=== PATIENT | male | born 1945 | race Caucasian/White ===

== ENCOUNTER 2016-11-12 23:01 | Emergency (ER) | payer BC, OTHER ==
[2016-11-12 23:20] VITALS: BP 138/89; PULSE 56; TEMP 97.4; BMI 28.2
[2016-11-13] MEDS ORDERED: morphine CARPU-JECT 2 MG/1 ML DISP.SYRIN IVPUSH ONE (00:21)
[2016-11-13] MEDS ORDERED: SODIUM CHLORIDE 0.9% 500 ML INFUS.BAG IV ONE (00:21)
[2016-11-13] MEDS ORDERED: TAMSULOSIN HCL 0.4 MG CAP.ER.24H (FP) PO ONE (00:23)
[2016-11-13 00:27] LABS: URINE APPEARANCE CLEAR; URINE BILIRUBIN NEGATIVE (NEGATIVE); URINE COLOR COLORLESS; URINE GLUCOSE (UA) NEGATIVE (NEGATIVE); URINE KETONE NEGATIVE (NEGATIVE); URINE LEUK ESTERASE NEGATIVE (NEGATIVE); URINE NITRITE NEGATIVE (NEGATIVE); URINE PROTEIN NEGATIVE (NEGATIVE); URINE UROBILINOGEN NEGATIVE E.U./dl (0.2-1.0)
[2016-11-13 00:31] LABS: URINE BLOOD 1+ (NEGATIVE)
[2016-11-13 00:33] LABS: URINE RBC 2 /hpf (0-3); URINE WBC <1 /hpf (3-5)
[2016-11-13] MEDS ORDERED: TAMSULOSIN HCL 0.4 MG CAP.ER.24H (FP) ONE (01:28)
[2016-11-13] MEDS ORDERED: morphine CARPU-JECT 2 MG/1 ML DISP.SYRIN ONE (01:28)
[2016-11-13 01:30] LABS: BASOPHIL 0.3 % (0-2.0); EOSINOPHIL 0.5 % (0-4.5); MCH 32.3 pg (25.7-33.7); MCHC 33.7 g/dl (32.0-35.9); MEAN CELL VOLUME 95.9 fl (80-96); MEAN PLT VOLUME 9.9 fl (7.5-11.1); NEUTROPHILS 78.3 % (42.8-82.8); PLATELET COUNT 105 K/MM3 (134-434); RDW 13.2 % (11.9-15.9); WHITE BLOOD COUNT 10.1 K/mm3 (4.0-10.0)
--- NOTE | 2016-11-13 01:33 | PDOC ---
History of Present Illness - General History Source: Patient Exam Limitations: No Limitations - History of Present Illness Initial Comments: 11/13/16 02:14 The patient is a 71 year old male with a PMHx of HTN, HLD who presents to the ED with right flank pain for 4 days. He states the pain is severe and persistent. Patient states that he is urinating more slowly. He reports a good appetite. The patient denies dysuria and hematuria. The patient denies chest pain, shortness of breath, palpitations, headache and dizziness. The patient denies fever, chills, nausea, vomiting, diarrhea, and constipation. <Hortensia Valencia - Last Filed: 11/13/16 02:13> <Hali Bailey - Last Filed: 11/13/16 06:07> - General Chief Complaint: Nausea/Vomiting Stated Complaint: NAUSEA/VOMITING Time Seen by Provider: 11/12/16 23:58 Past History <Hotrensia Valencia - Last Filed: 11/13/16 02:13> - Past Medical History GI Disorders: Yes (DIVERTICULOSIS, ACID REFLUX) HTN: Yes Hypercholesterolemia: Yes Suicide Attempt (Hx): No - Surgical History Appendectomy: Yes Orthopedic Surgery: Yes (RT ARTHROSCOPY 4WKS AGO) - Psycho/Social/Smoking Cessation Hx Anxiety: No Suicidal Ideation: No Smoking History: Never smoked Have you smoked in the past 12 months: No Number of Cigarettes Smoked Daily: 0 Information on smoking cessation initiated: No 'Breaking Loose' booklet given: 11/14/14 Hx Alcohol Use: No Drug/Substance Use Hx: No Substance Use Type: Alcohol Hx Substance Use Treatment: No <Hali Bailey - Last Filed: 11/13/16 06:07> - Past Medical History Allergies/Adverse Reactions: Allergies Allergy/AdvReac Type Severity Reaction Status Date / Time ciprofloxacin [From Cipro] Allergy Swelling Verified 11/12/16 23:20 tetracycline [Tetracycline] Allergy Rash Verified 11/12/16 23:20 potassium clavulanate AdvReac Verified 11/12/16 23:20 [From Augmentin] MUSSELS AdvReac "VOMITS" Uncoded 11/12/16 23:20 Home Medications: Ambulatory Orders Lisinopril [Zestril] 10 mg PO DAILY 05/08/14 Omeprazole [Prilosec (RX)] 40 mg PO DAILY 05/08/14 Simvastatin [Zocor -] 20 mg PO DAILY 11/13/14 Cetirizine HCl [Zyrtec -] 10 mg PO DAILY 02/21/15 Ciprofloxacin [Cipro (Restricted To Id)] 500 mg PO Q12H 02/21/15 Diphenhydramine HCl [Benadryl Capsules -] 25 mg PO TID #20 capsule 02/21/15 Methylprednisolone [Medrol Dose [place]] 4 mg PO ASDIR #21 tablet 02/21/15 Montelukast Na [Singulair -] 10 mg PO HS 02/21/15 Ibuprofen [Motrin -] 600 mg PO TID #21 tablet 11/13/16 Tamsulosin HCl [Flomax] 0.4 mg PO DAILY #14 capsule 11/13/16 Review of Systems - Review of Systems Able to Perform ROS?: Yes Comments:: 11/13/16 02:14 GENERAL/CONSTITUTIONAL: No fever or chills. No weakness. HEAD, EYES, EARS, NOSE AND THROAT: No change in vision. No ear pain or discharge. No sore throat. CARDIOVASCULAR: No chest pain or shortness of breath. RESPIRATORY: No cough, wheezing, or hemoptysis. GASTROINTESTINAL: No nausea, vomiting, diarrhea or constipation. GENITOURINARY: + Right flank pain, slow urination. No dysuria, frequency. MUSCULOSKELETAL: No joint or muscle swelling or pain. No neck or back pain. SKIN: No rash NEUROLOGIC: No headache, vertigo, loss of consciousness, or change in strength/ sensation. ENDOCRINE: No increased thirst. No abnormal weight change. HEMATOLOGIC/LYMPHATIC: No anemia, easy bleeding, or history of blood clots. ALLERGIC/IMMUNOLOGIC: No hives or skin allergy. <Hortensia Valencia - Last Filed: 11/13/16 02:13> *Physical Exam - Vital Signs Last Vital Signs Temp Pulse Resp BP Pulse Ox 97.4 F L 56 L 19 138/89 99 11/12/16 23:17 11/12/16 23:17 11/12/16 23:17 11/12/16 23:17 11/12/16 23:17 - Physical Exam Comments: 11/13/16 02:14 GENERAL: Awake, alert, and fully oriented, in no acute distress, afebrile. HEAD: No signs of trauma EYES: PERRLA, EOMI, sclera anicteric, conjunctiva clear ENT: Auricles normal inspection, hearing grossly normal, nares patent, oropharynx clear without exudates. Moist mucosa NECK: Normal ROM, supple, no lymphadenopathy, JVD, or masses LUNGS: Minimal crackles bilaterally in lower lung avendano. HEART: Regular rate and rhythm, normal S1 and S2, no murmurs, rubs or gallops ABDOMEN: Flank tenderness with percussion. No rebound, no guarding. Side tenderness with percussion. No RLQ tenderness, no LLQ tenderness. Soft, normoactive bowel sounds. No masses EXTREMITIES: Normal range of motion, no edema. No clubbing or cyanosis. No cords, erythema, or tenderness NEUROLOGICAL: Cranial nerves II through XII grossly intact. Normal speech, normal gait SKIN: Warm, Dry, normal turgor, no rashes or lesions noted. <Hortensia Valencia - Last Filed: 11/13/16 02:13> - Vital Signs Last Vital Signs Temp Pulse Resp BP Pulse Ox 97.4 F L 56 L 19 138/89 99 11/12/16 23:17 11/12/16 23:17 11/12/16 23:17 11/12/16 23:17 11/12/16 23:17 <Hali Bailey - Last Filed: 11/13/16 06:07> ED Treatment Course - LABORATORY CBC & Chemistry Diagram: 11/13/16 01:10 11/13/16 01:10 - ADDITIONAL ORDERS Additional order review: Laboratory Results 11/13/16 00:16 Urine Color Colorless Urine Appearance Clear Urine pH 8.0 D Ur Specific [place] 1.010 Urine Protein Negative Urine Glucose (UA) Negative Urine Ketones Negative Urine Blood 1+ H Urine Nitrite Negative Urine Bilirubin Negative Urine Urobilinogen Negative Ur Leukocyte Esterase Negative Urine RBC 2 Urine WBC <1 11/13/16 01:10 RBC 4.54 MCV 95.9 MCHC 33.7 RDW 13.2 MPV 9.9 Neutrophils % 78.3 D Lymphocytes % 13.1 D Monocytes % 7.8 Eosinophils % 0.5 Basophils % 0.3 - Medications Given in the ED: ED Medications Discontinued Medications Generic Name Dose Route Start Last Admin Trade Name Freq PRN Reason Stop Dose Admin Morphine Sulfate 2 mg 11/13/16 00:21 11/13/16 01:33 Morphine Injection - IVPUSH 11/13/16 00:22 2 mg ONCE ONE Administration Sodium Chloride 1,000 ml 11/13/16 00:21 11/13/16 01:33 Normal Saline - IV 11/13/16 00:22 1,000 ml ONCE ONE Administration Tamsulosin HCl 0.4 mg 11/13/16 00:23 11/13/16 01:34 Flomax - PO 11/13/16 00:24 0.4 mg ONCE ONE Administration <Hortensia Valencia - Last Filed: 11/13/16 02:13> - LABORATORY CBC & Chemistry Diagram: 11/13/16 01:10 11/13/16 01:10 - ADDITIONAL ORDERS Additional order review: Laboratory Results 11/13/16 00:16 Urine Color Colorless Urine Appearance Clear Urine pH 8.0 D Ur Specific [place] 1.010 Urine Protein Negative Urine Glucose (UA) Negative Urine Ketones Negative Urine Blood 1+ H Urine Nitrite Negative Urine Bilirubin Negative Urine Urobilinogen Negative Ur Leukocyte Esterase Negative Urine RBC 2 Urine WBC <1 11/13/16 01:10 RBC 4.54 MCV 95.9 MCHC 33.7 RDW 13.2 MPV 9.9 Neutrophils % 78.3 D Lymphocytes % 13.1 D Monocytes % 7.8 Eosinophils % 0.5 Basophils % 0.3 - RADIOLOGY Radiology Studies Ordered: Category Date Time Status SPIRAL- RENAL-STONE CT [CT] Stat CT Scan 11/13/16 00:23 Ordered <Hali Bailey - Last Filed: 11/13/16 06:07> Medical Decision Making - Medical Decision Making 11/13/16 05:55 Patient Name: Luis Fernando Heath THIS IS A PRELIMINARY REPORT FROM [facility] EXAM: CT abdomen without contrast and CT pelvis without contrast IMAGES: [id number] EXAM DATE AND TIME: 2016-11-13 04:27:54.0 REASON FOR EXAM: 71-year-old male evaluated for right kidney ureteral stone. COMPARISON: None. FINDINGS: Basilar atelectasis or scarring. Lack of intravenous contrast limits this exam. Mild cardiomegaly with calcified aortic valve calcified coronary arteriosclerosis noted. Noncontrast evaluation liver gallbladder pancreas spleen and adrenal glands appear unremarkable. Benign-appearing renal cortical cysts. Right perinephric fat stranding may be due to pyelonephritis or hydronephrosis. Moderate right hydronephrosis and hydroureter. No stones in the right ureter. Moderate arteriosclerosis of the aorta. Infrarenal 3.2 x 2.9 cm abdominal aortic aneurysm. Severe arteriosclerotic narrowing of the pelvic vasculature most likely associated with lower extremity claudication pain. Lack of oral contrast limits exam. Noncontrast evaluation of the stomach and small bowel appear unremarkable. Appendix is not identified. Constipation with diverticulosis without diverticulitis. No free air free fluid or abscess. Bladder and prostate appear unremarkable. Mild to moderate degenerative disc disease. IMPRESSION Right perinephric fat stranding may be due to pyelonephritis or hydronephrosis with moderate right hydronephrosis and hydroureter and no stones in the right ureter. Benign-appearing renal cortical cysts. Mild cardiomegaly with a calcified aortic valve and calcified coronary arteriosclerosis noted. Moderate arteriosclerosis of the aorta with an infrarenal abdominal aortic aneurysm and severe arteriosclerotic narrowing of the pelvic vasculature most likely associated with lower extremity claudication pain. Constipation with diverticulosis without diverticulitis. THIS DOCUMENT HAS BEEN ELECTRONICALLY SIGNED <Hali Bailey - Last Filed: 11/13/16 06:07> *DC/Admit/Observation/Transfer - Attestations Scribe Attestion: 11/13/16 02:14 Documentation prepared by Hortensia Valencia, acting as medical affairs specialist for Hali Bailey MD. <Hortensia Valencia - Last Filed: 11/13/16 02:13> <Hali Bailey - Last Filed: 11/13/16 06:07> Diagnosis at time of Disposition: Renal colic, Hematuria - Discharge Dispostion Disposition: HOME Condition at time of disposition: Improved - Referrals Referrals: Jignesh Lee MD [Primary Care Provider] - Belkis Lee MD [Staff Physician] - - Patient Instructions Printed Discharge Instructions: Kidney Stones -- Adult, Abdominal Aortic Aneurysm Repair
[2016-11-13 02:11] LABS: ALBUMIN 3.8 g/dl (3.4-5.0); ALK PHOS 80 U/L (45-117); ANION GAP 9 (8-16); BILIRUBIN,TOTAL 0.3 mg/dL (0.2-1.0); CALCIUM 8.7 mg/dL (8.5-10.1); CO2 29 mmol/L (21-32); GLUCOSE,RANDOM 106 mg/dL (74-106); SGOT/AST 46 U/L (15-37); SGPT/ALT 89 U/L (12-78)
[2016-11-13] MEDS ORDERED: KETOROLAC TROMETHAMINE 30 MG/1 ML VIAL IVPUSH ONE (02:26)
[2016-11-13] MEDS ORDERED: KETOROLAC TROMETHAMINE 30 MG/1 ML VIAL ONE (02:27)
== END 2016-11-13 06:31 | disposition home or self-care (01) ==
LOC: SUPCPDRO 23:01 → JER 23:01
PROC: 3E033NZ Introduction of Analgesics, Hypnotics, Sedatives into Peripheral Vein, Percutaneous Approach (ICD-10-PCS; principal; 2016-11-12)
PROC: 3E033NZ Introduction of Analgesics, Hypnotics, Sedatives into Peripheral Vein, Percutaneous Approach (ICD-10-PCS; 2016-11-12)
DX: N23 Unspecified renal colic (principal); R31.9 Hematuria, unspecified; I71.4 Abdominal aortic aneurysm, without rupture
CPT/HCPCS: 36415; 74176; 80053; 81003; 81015; 85025; 87086; 96374; 96375; 99282-25

== ENCOUNTER 2017-10-02 10:47 | Emergency (ER) | payer OTHER ==
[2017-10-02 11:02] VITALS: BP 126/52; PULSE 60; TEMP 97.7; BMI 28.4
[2017-10-02] MEDS ORDERED: IBUPROFEN 400 MG TABLET (FP) PO ONE (12:22)
--- NOTE | 2017-10-02 12:22 | PDOC ---
History of Present Illness - General Chief Complaint: Toothache Stated Complaint: INFECTION,SWELLING Time Seen by Provider: 10/02/17 11:58 History Source: Patient Exam Limitations: No Limitations - History of Present Illness Initial Comments: 10/02/17 12:27 Patient is a 72-year-old male with past medical history of hypertension, HLD who presents to the emergency department today complaining of tooth pain and cheek swelling. Patient states symptoms began approximately 2 days ago. He states that his upper left gums hurt. He also has left cheek swelling. Denies fevers, difficulty swallowing. He states that he has an appointment to see his dentist later this week however the pain made him want to be evaluated sooner. Past History - Travel Traveled outside of the country in the last 30 days: No Close contact w/someone who was outside of country & ill: No - Past Medical History Allergies/Adverse Reactions: Allergies Allergy/AdvReac Type Severity Reaction Status Date / Time ciprofloxacin [From Cipro] Allergy Swelling Verified 10/02/17 11:02 tetracycline [Tetracycline] Allergy Rash Verified 10/02/17 11:02 potassium clavulanate AdvReac Verified 10/02/17 11:02 [From Augmentin] Home Medications: Ambulatory Orders Lisinopril [Zestril] 40 mg PO DAILY 05/08/14 Omeprazole [Prilosec (RX)] 40 mg PO DAILY 05/08/14 Simvastatin [Zocor -] 20 mg PO DAILY 11/13/14 Nitrofurantoin Macrocrystal [Nitrofurantoin] 100 mg PO BID 11/23/16 Clindamycin [Cleocin -] 300 mg PO TID #21 capsule 10/02/17 Ibuprofen 800 mg PO TID #30 tablet 10/02/17 Anemia: No Asthma: No Cancer: No Cardiac Disorders: No CVA: No COPD: No CHF: No Dementia: No Diabetes: No GI Disorders: Yes (DIVERTICULOSIS, ACID REFLUX) Disorders: No HTN: Yes Hypercholesterolemia: Yes Kidney Stones: Yes Liver Disease: No Seizures: No Thyroid Disease: No - Surgical History Appendectomy: Yes Orthopedic Surgery: Yes (RT ARTHROSCOPY 4WKS AGO) - Suicide/Smoking/Psychosocial Hx Smoking History: Current every day smoker Have you smoked in the past 12 months: No Number of Cigarettes Smoked Daily: 0 If you are a former smoker, when did you quit?: 1 year ago Cigars Per Day: 2 Information on smoking cessation initiated: No 'Breaking Loose' booklet given: 11/14/14 Hx Alcohol Use: Yes (SOCIAL) Drug/Substance Use Hx: No Substance Use Type: None Hx Substance Use Treatment: No Review of Systems - Review of Systems Able to Perform ROS?: Yes Is the patient limited Indonesian proficient: No Constitutional: No: Chills, Fever, Weakness HEENTM: Yes: Mouth Pain, Dental Problems, Mouth Swelling. No: Nose Congestion, Throat Pain, Throat Swelling, Difficulty Swallowing Integumentary: Yes: Other (swelling L cheek). No: Bruising, Erythema, Rash Neurological: No: Headache, Numbness, Paresthesia, Tingling, Weakness All Other Systems: Reviewed and Negative *Physical Exam - Vital Signs Last Vital Signs Temp Pulse Resp BP Pulse Ox 97.7 F 60 20 126/52 97 10/02/17 10:58 10/02/17 10:58 10/02/17 10:58 10/02/17 10:58 10/02/17 10:58 - Physical Exam Comments: 10/02/17 16:00 GENERAL: The patient is awake, alert, and fully oriented, in no acute distress. HEAD: Normal with no signs of trauma. MOUTH: Dental decay of the L upper canine. No obvious abscess or area of fluctance. EYES: Pupils equal, round and reactive to light, extraocular movements intact, sclera anicteric, conjunctiva clear. EXTREMITIES: Normal range of motion, no edema. NEUROLOGICAL: Normal speech, normal gait. No numbness, sensory deficit to face b /l, Motor strength intact b/l. PSYCH: Normal mood, normal affect. SKIN: Warm, Dry, normal turgor, no rashes or lesions noted. Medical Decision Making - Medical Decision Making 10/02/17 12:32 Patient presents with 2 days of dental pain. There is obvious dental decay of the left upper canine. No obvious fluctuance or abscess. We will treat with antibiotics (clindamycin) prophylactically at this time. Pt. allergic to augmenting and cipro. Patient also prescribed ibuprofen for pain. He was instructed to keep his appointment with his dentist. We'll discharge home at this time. All questions were answered. *DC/Admit/Observation/Transfer Diagnosis at time of Disposition: Tooth infection - Discharge Dispostion Disposition: HOME Condition at time of disposition: Good Admit: No - Prescriptions Prescriptions: Clindamycin [Cleocin -] 300 mg PO TID #21 capsule Ibuprofen 800 mg PO TID #30 tablet - Referrals Referrals: Jignesh Lee MD [Primary Care Provider] - - Patient Instructions Printed Discharge Instructions: DI for Tooth Decay Additional Instructions: You have infected tooth. Please take the antibiotics as prescribed. Please finish the entire dose even if you feel better. Please take this medication with food. You may take ibuprofen 800 mg 3 times a day as needed for pain. You may use warm compresses to the cheek to help with swelling. Please follow up with her dentist tomorrow. Return to the emergency department if you have worsening pain, difficulty swallowing, shortness of breath, any signs of allergic reaction to the antibiotic, or any new or worsening symptoms. - Post Discharge Activity
== END 2017-10-02 12:27 | disposition home or self-care (01) ==
LOC: JERFT 10:47
DX: K02.9 Dental caries, unspecified (principal); I10 Essential (primary) hypertension; E78.00 Pure hypercholesterolemia, unspecified; Z87.442 Personal history of urinary calculi
CPT/HCPCS: 99281-25

== ENCOUNTER 2019-07-13 07:48 | Day surgery (SDC) | payer OTHER ==
[2019-07-12 14:14] VITALS: BMI 29.3
[2019-07-13] MEDS ORDERED: ACETAMINOPHEN 325 MG TABLET (FP) PO PRN ×2 (09:54→11:36)
--- NOTE | 2019-07-13 09:58 | OP ---
Operative Note - Note: Operative Date: 07/13/19 Pre-Operative Diagnosis: rt. upj-obstruction with hydronephrosis Operation: cysto, upj dilation and jj stent placement Post-Operative Diagnosis: Same as Pre-op Surgeon: Belkis Lee Anesthesia: General Specimens Removed: urine Estimated Blood Loss (mls): 0 Drains & Tubes with Location: 24cm rt. jj stent Drains, Volume Out (mls): 0 Blood Volume Replaced (mls): 0 Fluid Volume Replaced (mls): 0 Operative Report Dictated: Yes
[2019-07-13] MEDS ORDERED: MIDAZOLAM HCL 2 MG/2 ML SINGLE DOSE VIAL ONE (10:43)
[2019-07-13] MEDS ORDERED: ceFAZolin SODIUM 1 GM VIAL IVPB ONE (10:53)
[2019-07-13] MEDS ORDERED: IOHEXOL 300 MG/ML INFUS..BTL IV ONE (11:03)
[2019-07-13] MEDS ORDERED: oxyCODONE HCL 5 MG TABLET PO PRN (11:52)
[2019-07-13] MEDS ORDERED: PROMETHAZINE HCL 25 MG/1 ML VIAL IVPUSH PRN (11:52)
[2019-07-13] MEDS ORDERED: ONDANSETRON 4 MG/2 ML VIAL IVPUSH PRN (11:52)
[2019-07-13] MEDS ORDERED: LACTATED RINGERS SOLUTION 1,000 ML IV SCH (12:00)
[2019-07-13] MEDS ORDERED: ONDANSETRON 4 MG/2 ML VIAL ONE (13:49)
[2019-07-13] MEDS ORDERED: ACETAMINOPHEN INJECTION 100 ML IVPB ONE (14:03)
[2019-07-13] MEDS ORDERED: ACETAMINOPHEN 1000 MG/100 ML VIAL (NON FORMULARY) IVPB ONE ×2 (14:05→14:10)
[2019-07-13 15:45] VITALS: BP 117/77; PULSE 61; TEMP 97.8
--- NOTE | 2019-07-13 16:31 | CONS ---
DATE OF CONSULTATION: DATE OF DICTATION: 07/13/2019 HISTORY OF PRESENT ILLNESS: The patient is a 73-year-old male with a history of prostatism. He does wake up once to twice at night, has urinary frequency and hesitancy. Denies dysuria or hematuria. He was found to have a right hydronephrosis on a CT scan. The bladder was also thick. The patient has had a liver biopsy last week for elevated liver enzymes. He does have history of dyslipidemia. He is allergic to AUGMENTIN, TETRACYCLINE, and CIPRO. He presently is on lisinopril, a PPI, and . PHYSICAL EXAMINATION: Abdomen: His abdomen is soft. There is some right CVA tenderness. Genitourinary: Genitalia are atraumatic. Prostate is 2+, smooth, not tender. IMPRESSION: At present is severe right sided hydronephrosis with marked cortical atrophy that has worsened since December 22, 2016. The right ureter is not visualized, suggesting a high grade ureteropelvic junction obstruction. There were also multiple left renal cysts. There are thickened gastric folds. There is also a 3.1-cm abdominal aortic aneurysm. Also seen was a thickened urinary bladder. Cystitis cannot be excluded. The patient will go for cystoscopy, right retrograde pyelogram and stent placement. Procedure was explained to patient, and he agrees. MADELINE PEMBERTON M.D. [id number]
--- NOTE | 2019-07-13 17:09 | OP ---
DATE OF OPERATION: 07/13/2019 PREOPERATIVE DIAGNOSIS: Right ureteropelvic junction obstruction, right cortical thinning. POSTOPERATIVE DIAGNOSIS: Right ureteropelvic junction obstruction, right cortical thinning. OPERATIVE PROCEDURE: Cystourethroscopy, right retrograde pyelogram, right ureteropelvic junction dilation and placement of a right JJ stent. ANESTHESIA: General. DESCRIPTION OF PROCEDURE: Under above stated anesthesia, patient is prepped and draped in the usual sterile manner. Cystoscopy revealed trilobar hypertrophy of the prostate. Urine was collected for culture. Inspection of the bladder revealed a grade 2 trabeculation; ureteral orifices were within normal limits. Efflux of clear urine was noted from the left, none was seen from the right. A Flexi-Tip catheter was placed in the right ureteral orifice, and 10 mL of contrast was injected. This revealed a severe extrarenal pelvis with a stricture at the ureteropelvic junction. Delayed films revealed no drainage from the renal pelvis. Therefore a glidewire was passed up the right renal unit. A ureteral dilation balloon was then placed over the wire and into the renal pelvis. The balloon bypassed the stricture in the midline. The balloon was then dilated to 14 [place] and left open for 10 minutes. Afterwards, the balloon dilator was deflated and removed. A 24 [place] JJ stent was left in place. X-rays confirmed good position of the stent. The bladder was emptied. The scope was removed. The patient tolerated the procedure well. He returned to the recovery room in good condition. Mitali [id number]
--- NOTE | 2019-07-17 16:36 | PATH ---
Cytology Non-Gynecological Report Patient Name: TORI LEUNG Med. Rec. #: [id number] /Age/Gender: 1945 (Age: 73) / M Account: [id number] Location: [facility] Taken: 07/13/2019 Received: 07/13/2019 Reported: 07/17/2019 Physicians: Belkis Lee M.D. Specimen(s) Received BLADDER URINE Clinical History Bladder urine for cytology Final Diagnosis BLADDER URINE FOR CYTOLOGY: SATISFACTORY FOR EVALUATION. NEGATIVE FOR HIGH GRADE UROTHELIAL CARCINOMA. MANY UROTHELIAL FRAGMENTS PRESENT. SCATTERED UROTHELIAL CELLS AND SQUAMOUS EPITHELIAL CELLS PRESENT. Comment: Urothelial fragments are suggestive of prior instrumentation. However, differential diagnoses include lithiasis, or a low grade papillary neoplasm. Suggest clinical/radiologic correlation. Electronically Signed Margaux Gallagher M.D. Gross Description Approximately 60 cc of yellow fluid received fresh. One cytofunnel prepared and Pap stained.
== END 2019-07-13 15:00 | disposition home or self-care (01) ==
LOC: JASU-SURG 07:48
PROVIDERS: ATTEND Urology
PROC: 0T768DZ Dilation of Right Ureter with Intraluminal Device, Via Natural or Artificial Opening Endoscopic (ICD-10-PCS; principal; 2019-07-13 10:00)
PROC: 0T778DZ Dilation of Left Ureter with Intraluminal Device, Via Natural or Artificial Opening Endoscopic (ICD-10-PCS; 2019-07-13 10:00)
DX: N13.5 Crossing vessel and stricture of ureter without hydronephrosis (principal); N40.0 Benign prostatic hyperplasia without lower urinary tract symptoms; I10 Essential (primary) hypertension; J44.9 Chronic obstructive pulmonary disease, unspecified
CPT/HCPCS: 76000-TC-FY; 87086; 88108; 94760; J0131

== ENCOUNTER 2019-07-20 12:24 | Inpatient (IN) | payer OTHER ==
--- NOTE | 2019-07-20 13:21 | PDOC ---
Attending Attestation - Resident Resident Name: Rosa Madrigal - ED Attending Attestation I have performed the following: I have examined & evaluated the patient, The case was reviewed & discussed with the resident, I agree w/resident's findings & plan, Exceptions are as noted - HPI HPI: 07/20/19 13:21 74y M hx of hx of htn, hl, kidney stones sp recnet stent, recent liver bx at [facility] presents for evaluation of sob and lighthededness. Pt had gone to dr Lee for an outpatient fu and was sent to the ED as he was feeling sob. pt states he felt fine yesterday, but woke up not feeling well, fatigued, nonproductive cough and feeling some sob/michael. Pt denies any cp, n/v, headachem neck pain, abd pain, dysuria, diarrhea. Physical exam GENERAL: The patient is awake, alert, and fully oriented, Nontoxic - in no acute distress. HEAD: Normocephalic, atraumatic. EYES: extraocular movements intact, sclera anicteric, conjunctiva clear. ENT: Normal voice, Moist mucous membranes. NECK: Normal range of motion, supple LUNGS: R basilar rales, HEART: Rtchycardic wo murmer ABDOMEN: Soft, nontender, No guarding, no rebound. No CVA tenderness EXTREMITIES: Normal range of motion, no edema. NEUROLOGICAL: No facial assymetry, Normal speech, movin gall 4 ext spotnaouesly and symmetrically PSYCH: Normal mood, normal affect. SKIN: hot to touch, Dry, normal turgor, ddx - suspect pna - will obtain labs work, cxr, ua sepsis orderset obtained - Physicial Exam PE: 07/22/19 08:20 see above - Medical Decision Making 07/20/19 16:20 pts labs reviewed noted for leukocytosis UA relatively clean cxr noted for RLL pna - will treat for CAP (no prior hospitalizition) will start abx will admit for furhter managment for pna Heart Score/ECG Review - ECG Impressions Comment:: 07/20/19 13:31 Twelve-lead EKG was performed and reviewed by me. There is normal sinus rhythm with a rate of 111 The axis is normal. The intervals are normal. There is normal R wave progression There are no ST or T wave abnormalities. Impression: Sinus tachycardia
--- NOTE | 2019-07-20 13:41 | PDOC ---
History of Present Illness - General Chief Complaint: SIRS, Suspected/Possible Stated Complaint: DIZZY/WEAK Time Seen by Provider: 07/20/19 13:12 - History of Present Illness Initial Comments: 07/20/19 14:08 74 y/o M hx of HTN, HLD, GERD, BPH and recent stent placement for obstruction and hydronephrosis, presents to the ER with 3 days of right flank pain. He had a stent placed last Tuesday by Dr. Brian Barba and was placed on antibiotics. the pain is 6/10 right sided flank pain. it does not radiate to his groin or abdomen. Denies taking any pain medications at this time. He endorses burning with urination and dry cough. He denies any sputum on coughing, hematuria, nausea, vomiting, diarrhea, bloody stool, chest pain. Past History - Past Medical History Allergies/Adverse Reactions: Allergies Allergy/AdvReac Type Severity Reaction Status Date / Time ciprofloxacin [From Cipro] Allergy Swelling Verified 07/20/19 12:28 tetracycline [Tetracycline] Allergy Rash Verified 07/20/19 12:28 potassium clavulanate AdvReac Verified 07/20/19 12:28 [From Augmentin] Home Medications: Ambulatory Orders Lisinopril [Zestril] 40 mg PO DAILY 05/08/14 Omeprazole [Prilosec (RX)] 40 mg PO DAILY 05/08/14 Aspirin [ASA -] 1 tab PO DAILY 07/09/19 Tamsulosin HCl [Flomax -] 1 cap PO DAILY 07/09/19 Fenofibrate 160 mg PO DAILY 07/20/19 Nitrofurantoin Monohyd/M-Cryst [Macrobid -] 100 mg PO BID 07/20/19 Oxycodone HCl/Acetaminophen [Percocet 5-325 mg Tablet] 1 tab PO Q6H PRN Anemia: No Asthma: No Cancer: No Cardiac Disorders: No CVA: No COPD: No CHF: No Dementia: No Diabetes: No GI Disorders: Yes (DIVERTICULOSIS, ACID REFLUX) Disorders: Yes (kidney stones) HTN: Yes Hypercholesterolemia: Yes Kidney Stones: Yes Liver Disease: No Seizures: No Thyroid Disease: No - Surgical History Appendectomy: Yes Orthopedic Surgery: Yes (B/L KNEES SX) - Psycho Social/Smoking Cessation Hx Smoking History: Unknown if ever smoked Have you smoked in the past 12 months: No Number of Cigarettes Smoked Daily: 0 If you are a former smoker, when did you quit?: 1 year ago Cigars Per Day: 5 'Breaking Loose' booklet given: 11/14/14 Hx Alcohol Use: Yes (SOCIAL-STOPPED 5 WEEKS AGO) Drug/Substance Use Hx: No Substance Use Type: None Hx Substance Use Treatment: No Review of Systems - Review of Systems Constitutional: Yes: Chills, Fever HEENTM: No: Eye Pain, Blurred Vision Respiratory: Yes: Cough. No: Shortness of Breath Cardiac (ROS): Yes: Lightheadedness. No: Chest Pain ABD/GI: No: Constipated, Diarrhea, Nausea : Yes: Burning, Flank Pain. No: Hematuria Musculoskeletal: Yes: Back Pain. No: Neck Pain Integumentary: No: Bruising, Change in Color Neurological: No: Headache, Numbness Hematologic/Lymphatic: No: Anemia, Blood Clots *Physical Exam - Vital Signs Last Vital Signs Temp Pulse Resp BP Pulse Ox 99.6 F 116 H 24 H 118/53 L 98 07/20/19 12:30 07/20/19 12:30 07/20/19 12:30 07/20/19 12:30 07/20/19 12:30 - Physical Exam Comments: 07/20/19 14:07 PE: GENERAL: Awake, alert, and fully oriented, uncomfortable. HEAD: No signs of trauma, normocephalic, atraumatic EYES: PERRLA, EOMI, sclera anicteric, conjunctiva clear ENT: Auricles normal inspection, hearing grossly normal, nares patent, oropharynx clear without exudates. Moist mucosa NECK: Normal ROM, supple, no lymphadenopathy, JVD, or masses LUNGS: No distress, speaks full sentences, crackles in right lung base. HEART: Regular rate and rhythm, normal S1 and S2, no murmurs, rubs or gallops, peripheral pulses normal and equal bilaterally. ABDOMEN: Soft, nontender, normoactive bowel sounds. No guarding, no rebound. No masses EXTREMITIES : Normal inspection, Normal range of motion, no edema. No clubbing or cyanosis NEUROLOGICAL: Cranial nerves II through XII grossly intact. Normal speech, normal gait, no focal sensorimotor deficits SKIN: very warm to touch, Dry, normal turgor, no rashes or lesions noted ED Treatment Course - LABORATORY CBC & Chemistry Diagram: 07/20/19 14:30 07/20/19 14:30 Medical Decision Making - Medical Decision Making 07/20/19 14:01 74 y/o M hx of HTN, HLD, GERD, BPH and recent stent placement for obstruction and hydronephrosis, pt's rectal temperature 102.5F sepsis workup initiated. Meds: toradol 30mg IV for pain and fever. 07/20/19 14:14 07/20/19 15:07 EKG: sinus tachycardia, possible left atrial enlargement borderline EKG 07/20/19 16:32 elevated lactic acid 3.6 white count 22.[address] anny barba for admission. will admit to [facility] microblog has been sent. and additional 1L NS ordered. Discharge - Follow up/Referral Referrals: Jignesh Barba MD [Primary Care Provider] - - Patient Discharge Instructions - Post Discharge Activity
[2019-07-20] MEDS ORDERED: KETOROLAC TROMETHAMINE 30 MG/1 ML VIAL IVPUSH ONE (14:02)
[2019-07-20] MEDS ORDERED: SODIUM CHLORIDE 0.9% 500 ML INFUS.BAG IV ONE ×2 (14:06→16:19)
[2019-07-20 14:59] LABS: VENOUS PH 7.39 (7.31-7.41); VENOUS PO2 < 49 mmHg (28-48)
[2019-07-20 15:01] LABS: VENOUS PC02 43.3 mmHg (38-52)
[2019-07-20] MEDS ORDERED: AZITHROMYCIN IVPB 500 MG in DEXTROSE 5%-WATER - 250 ML IVPB ONE (15:04)
[2019-07-20] MEDS ORDERED: CEFTRIAXONE 1,000 MG in DEXTROSE 5%-WATER - 50 ML IVPB ONE (15:04)
[2019-07-20 15:08] LABS: BASO % 0.4 % (0-2.0); EOS % 0.3 % (0-4.5); HEMATOCRIT 44.7 % (35.4-49); HEMOGLOBIN 15.2 GM/dL (11.7-16.9); LYMPH % 1.2 % (8-40); MCH 33.3 pg (25.7-33.7); MCHC 34.1 g/dl (32.0-35.9); MEAN CELL VOLUME 97.7 fl (80-96); MEAN PLT VOLUME 9.5 fl (7.5-11.1); MONO % 4.5 % (3.8-10.2); NEUT % 93.6 % (42.8-82.8); PLATELET COUNT 109 K/MM3 (134-434); RBC 4.57 M/mm3 (4.00-5.60); RDW 13.2 % (11.9-15.9); WHITE BLOOD COUNT 22.8 K/mm3 (4.0-10.0)
[2019-07-20 15:13] LABS: EPI CELLS 3.8 /HPF (0-5/HPF); HYALINE CASTS 6 /lpf (0-8); PH,URINE 5.5 (5.0-8.0); URINE APPEARANCE CLEAR; URINE BACTERIA 2.2 /hpf (NEGATIVE); URINE BILIRUBIN NEGATIVE (NEGATIVE); URINE COLOR DK YELLOW; URINE GLUCOSE (UA) NEGATIVE (NEGATIVE); URINE KETONE TRACE (NEGATIVE); URINE LEUK ESTERASE 2+ (NEGATIVE); URINE NITRITE NEGATIVE (NEGATIVE); URINE PROTEIN 2+ (NEGATIVE); URINE RBC 26 /hpf (0-4); URINE UROBILINOGEN 0.2 mg/dL (0.2-1.0); URINE WBC 21 /hpf (0-5)
[2019-07-20] MEDS ORDERED: AZITHROMYCIN IVPB 500 MG/250 ML BAG IVPB ONE (15:16)
[2019-07-20] MEDS ORDERED: CEFTRIAXONE 1 GM/50 ML BAG ONE (15:16)
[2019-07-20] MEDS ORDERED: KETOROLAC TROMETHAMINE 30 MG/1 ML VIAL ONE (15:16)
[2019-07-20 15:44] LABS: ANISOCYTOSIS 0; MACROCYTOSIS 0; PLATELET ESTIMATE DECREASED
[2019-07-20 15:49] LABS: ALBUMIN 3.6 g/dl (3.4-5.0); BILIRUBIN,TOTAL 0.8 mg/dL (0.2-1); BLOOD UREA NITROGEN 21.3 mg/dL (7-18); CALCIUM 9.1 mg/dL (8.5-10.1); CREATININE 1.5 mg/dL (0.55-1.3); POTASSIUM 4.5 mmol/L (3.5-5.1); TOT PROT 7.2 g/dl (6.4-8.2)
[2019-07-20] MEDS ORDERED: SODIUM CHLORIDE 1,000 ML IV STA ×2 (16:47→21:45)
[2019-07-20] MEDS ORDERED: ACETAMINOPHEN 1000 MG/100 ML VIAL (NON FORMULARY) IVPB PRN (17:02)
--- NOTE | 2019-07-20 17:08 | HP ---
<Ricky Roth - Last Filed: 07/20/19 22:51> CHIEF COMPLAINT: Flank pain/ SOB PCP: Dr. Jignesh Lee (away this weekend) HISTORY OF PRESENT ILLNESS: 74yo M with h/o HTN, HLD, ureter obstruction s/p cystoscopy stenting (07/13) who presents today with complaints of flank pain and some shortness of breath. Pt reports he had a cystoscopy on 07/13/19 without any complication with Dr. Chelsea Lee. Pt was given Macrobid 100mg BID PO to take as prophylaxis and was compliant throughout the weekend. Pt this morning upon waking felt short of breath and had lateral abdominal pain rated 5-6/10. Pt sought help at the ER once he realized his symptoms were prolonged throughout the day. Normally, pt has no trouble with breathing and can ambulate/perform ADLs without shortness of breath. Pt currently states his SOB is improved since coming into the ER. Pt does endorse a nonproductive cough. In addition he has dysuria without any notable blood, darkening of urine. He denies any fever/chills/rigors, blurry vision, headaches, lightheadedness, dizziness, chest pain, palpitations, diarrhea/constipation, sick contacts. In ED pt was hydrated, continued on IV antibiotics and had imaging which revealed multifocal pneumonia PAST MEDICAL HISTORY: HTN, HLD, hydronephrosis 2/2 to ureter obstruction s/p stenting PAST SURGICAL HISTORY: Cystoscopy with UJ stent (07/13/19) Social History: Smoking: Cigars; daily Alcohol: None Drugs: None Family: noncontributory Allergies ciprofloxacin [From Cipro] Allergy (Verified 07/20/19 12:28) Swelling tetracycline [Tetracycline] Allergy (Verified 07/20/19 12:28) Rash potassium clavulanate [From Augmentin] Adverse Reaction (Verified 07/20/19 12:28 ) HOME MEDICATIONS: Home Medications Medication Instructions Recorded Lisinopril [Zestril] 40 mg PO DAILY 05/08/14 Omeprazole [Prilosec (RX)] 40 mg PO DAILY 05/08/14 Aspirin [ASA -] 1 tab PO DAILY 07/09/19 Tamsulosin HCl [Flomax -] 1 cap PO DAILY 07/09/19 Fenofibrate 160 mg PO DAILY 07/20/19 Nitrofurantoin Monohyd/M-Cryst 100 mg PO BID 07/20/19 [Macrobid -] Oxycodone HCl/Acetaminophen 1 tab PO Q6H PRN 07/20/19 [Percocet 5-325 mg Tablet] REVIEW OF SYSTEMS As per HPI PHYSICAL EXAMINATION Vital Signs - 24 hr 07/20/19 12:30 Temperature 99.6 F Pulse Rate 116 H Respiratory 24 H Rate Blood Pressure 118/53 L O2 Sat by Pulse 98 Oximetry (%) GENERAL: Awake, alert, and fully oriented, in no acute distress. HEENT: NC/AT, EOMI, FERN, sclera injected, dry mucosa NECK: No JVD LUNGS: Breath sounds equal, clear to auscultation bilaterally. No wheezes, and no crackles. No accessory muscle use. HEART: RRR, normal S1 and S2 with systolic ejection murmur 2/6 ABDOMEN: Soft, nondistendend, slight tenderness on R hemisphere, normoactive bS , no guarding, no hepatomegaly. MUSCULOSKELETAL: R CVA tenderness. EXTREMITIES: 2+ pulses, warm, well-perfused. No calf tenderness. No peripheral edema. PSYCHIATRIC: Cooperative. Good eye contact. Appropriate mood and affect. SKIN: Warm, dry, no rashes or lesions noted, normal capillary refill. Laboratory Results - last 24 hr 07/20/19 07/20/19 07/20/19 14:30 14:30 14:30 WBC 22.8 H RBC 4.57 Hgb 15.2 Hct 44.7 MCV 97.7 H MCH 33.3 MCHC 34.1 RDW 13.2 Plt Count 109 L D MPV 9.5 D Absolute Neuts (auto) 21.4 H Neutrophils % 93.6 H D Neutrophils % (Manual) 62.8 Band Neutrophils % 23.5 Lymphocytes % 1.2 L D Lymphocytes % (Manual) 4.9 L Monocytes % 4.5 Monocytes % (Manual) 2 L Eosinophils % 0.3 D Eosinophils % (Manual) 0.0 Basophils % 0.4 Basophils % (Manual) 0.0 Myelocytes % (Man) 1 Promyelocytes % (Man) 0 Blast Cells % (Manual) 0 Nucleated RBC % 0 Metamyelocytes 3 H Hypochromia 0 Platelet Estimate Decreased Polychromasia 0 Poikilocytosis 0 Anisocytosis 0 Microcytosis 0 Macrocytosis 0 VBG pH POC VBG pCO2 POC VBG pO2 VBG HCO3 VBG O2 Sat ([place]) VBG Base Excess Sodium 136 Potassium 4.5 Chloride 103 Carbon Dioxide 26 Anion Gap 7 L BUN 21.3 H Creatinine 1.5 H Est GFR (CKD-EPI)AfAm 53.14 Est GFR (CKD-EPI)NonAf 45.85 Random Glucose 91 Lactic Acid 3.6 H* Calcium 9.1 Total Bilirubin 0.8 AST 35 ALT 54 Alkaline Phosphatase 89 Total Protein 7.2 Albumin 3.6 Urine Color Urine Appearance Urine pH Ur Specific Cooper Urine Protein Urine Glucose (UA) Urine Ketones Urine Blood Urine Nitrite Urine Bilirubin Urine Urobilinogen Ur Leukocyte Esterase Urine WBC (Auto) Urine RBC (Auto) Urine Casts (Auto) U Epithel Cells (Auto) Urine Bacteria (Auto) 07/20/19 07/20/19 14:30 14:30 WBC RBC Hgb Hct MCV MCH MCHC RDW Plt Count MPV Absolute Neuts (auto) Neutrophils % Neutrophils % (Manual) Band Neutrophils % Lymphocytes % Lymphocytes % (Manual) Monocytes % Monocytes % (Manual) Eosinophils % Eosinophils % (Manual) Basophils % Basophils % (Manual) Myelocytes % (Man) Promyelocytes % (Man) Blast Cells % (Manual) Nucleated RBC % Metamyelocytes Hypochromia Platelet Estimate Polychromasia Poikilocytosis Anisocytosis Microcytosis Macrocytosis VBG pH 7.39 POC VBG pCO2 43.3 POC VBG pO2 < 49 H VBG HCO3 25.4 VBG O2 Sat ([place]) 76.3 VBG Base Excess 0.6 Sodium Potassium Chloride Carbon Dioxide Anion Gap BUN Creatinine Est GFR (CKD-EPI)AfAm Est GFR (CKD-EPI)NonAf Random Glucose Lactic Acid Calcium Total Bilirubin AST ALT Alkaline Phosphatase Total Protein Albumin Urine Color Dk yellow Urine Appearance Clear Urine pH 5.5 D Ur Specific Cooper 1.019 Urine Protein 2+ H Urine Glucose (UA) Negative Urine Ketones Trace H Urine Blood 2+ H Urine Nitrite Negative Urine Bilirubin Negative Urine Urobilinogen 0.2 Ur Leukocyte Esterase 2+ H Urine WBC (Auto) 21 Urine RBC (Auto) 26 Urine Casts (Auto) 6 U Epithel Cells (Auto) 3.8 Urine Bacteria (Auto) 2.2 ASSESSMENT/PLAN: Severe sepsis 2/2 to complicated UTI and ? lung infiltrate Lactic Acidosis Leukocytosis with bandemia Macrocytosis Acute kidney insufficiency Hx of HTN Hx of HLD --Cover with Meropenem for both potential sources and augmentin, cipro, and tetracycline allergy --ID consulted --IVF: s/p 1.5L in ER --LR 500cc bolus and then can maintenance at 100cc/hr --Bolus as needed --Trend LA; suspect pure Type A --Blood and urine cultures pending; f/u --Sputum culture ordered --Continue Flomax 0.4mg qdaily --Monitor UO for resuscitation goal (0.5cc/kg/hr minimum) --Avoid nephrotoxic medications --Held ACEi --Trend Cr --Renal/Bladder U/S ordered FEN: Fluids: LR@100cc/hr Electrolyte abnormalities: None Nutrition: Cardiac PPX: DVT - Heparin TID GI - Not indicated Dispo: M/S admit Case discussed Ricky Roth Do - IM PGY-3 Visit type - Emergency Visit Emergency Visit: Yes ED Registration Date: 07/20/19 Care time: The patient presented to the Emergency Department on the above date and was hospitalized for further evaluation of their emergent condition. - New Patient This patient is new to me today: Yes Date on this admission: 07/20/19 - Critical Care Critical Care patient: No ATTENDING PHYSICIAN STATEMENT I saw and evaluated the patient. I reviewed the resident's note and discussed the case with the resident. I agree with the resident's findings and plan as documented. SUBJECTIVE: OBJECTIVE: ASSESSMENT AND PLAN: <Landen Wynne - Last Filed: 07/21/19 09:30> Seen and examined; discussed at length with resident team. All historical findings and PE findings independently verified alongside labs, vitals, imaging , and diagnostics. Agree with outlined resident documentation for assessment and plan aside from as supplemented by myself below. Patient presents with sepsis following a urological procedure placing him at risk for MDROs. Followup ID and urology consults, continue abx. Monitor pulmonary workup; he is a known cigar smoker and may have a history of COPD. 10 sys ROS done and negative aside from HPI Mild distress, resting in bed, sweating NC AT EOMI PERRLA Tachycardic s1/2 Lungs with faint wheezes b/l with no focal consolidation, w/ sym exp Tender on postprocedure side to fist percussion CN2-12 wnl, no fnd Normal mood, appropriate behavior A/P: Patient is seen and examined and is found to be septic with recent uro procedure Problems include: -Sepsis secondary to upper urinary tract infection with recent instrumentation *Broad spectrum abx, lactic acidosis resolved. Less tachy, monitor on floor. Sepsis improved clinically. -Recent obstructive uropathy with hx hydronephrosis s/p 07/13 stenting *Obstruction was secondary to UPJ obstruction; merrem per guidelines. Followup spiral CT. -Possible PNA-less likely *Would be CAP if present; needs atypical coverage as well but will hold off given that the changes on CXR are mostly notable for congestion and a prominent mediastinum. Placing on incentive spirometry, followup echo and CT, monitor on floor. -History of BPH *Continue tamsulosin -Ongoing Tobacco Use with possible COPD *OP pulmonary referral for PFTs, consider PO Prednisone burst x5 days. PRN albuterol and incentive carlos ordered. -History of HTN -History of HLD *Resume home tx when appropriate -Macrocytosis without anemia *Following up B12/Folic acid. Iron studies noted; replace with PO iron when not acutely ill -Thrombocytopenia *Trend CBC, FU HIV and HCV Ab. Consider heme consult if worsens. Full Code ATTENDING PHYSICIAN STATEMENT I saw and evaluated the patient. I reviewed the resident's note and discussed the case with the resident. I agree with the resident's findings and plan as documented. SUBJECTIVE: OBJECTIVE: ASSESSMENT AND PLAN:
[2019-07-20] MEDS ORDERED: PIPERACILLIN/TAZOB 3.375 GM 3.375 GM in DEXTROSE 5%-WATER - 50 ML IVPB SCH (18:00)
[2019-07-20 18:34] VITALS: BMI 29.5
[2019-07-20] MEDS ORDERED: MEROPENEM 1 GM VIAL (RESTRICTED TO ID) IVPB ONE (18:37)
[2019-07-20] MEDS ORDERED: DEXTROSE 5%-WATER 100 ML IVPB ONE (18:37)
[2019-07-20] MEDS: MEROPENEM 1 GM in DEXTROSE 5%-WATER 100 ML IVPB SCH (18:41)
[2019-07-20] MEDS ORDERED: LACTATED RINGERS SOLUTION 1,000 ML/1,000 ML INFUS.BAG IV SCH (19:30)
[2019-07-20 20:19] LABS: INR 1.17 (0.83-1.09); PROTHROMBIN TIME (PATIENT) 13.8 SEC (9.7-13.0)
[2019-07-20 20:21] LABS: ACTIVATED PTT 34.5 SECONDS (25.2-36.5)
[2019-07-20] MEDS: HEPARIN NA (PORCINE) 5,000 UNITS/ML 1ML VIAL SQ SCH (21:18)
[2019-07-20] MEDS ORDERED: ALBUTEROL SO4 2.5/IPRATROPIUM 0.5 INH SOL 3 ML VIAL.NEB. NEB PRN (22:25)
[2019-07-20] MEDS: LACTATED RINGERS SOLUTION 1,000 ML/1,000 ML INFUS.BAG IV SCH (23:34)
[2019-07-21] MEDS ORDERED: DEXTROSE 5%-WATER 100 ML IVPB ONE ×2 (05:44→16:56)
[2019-07-21] MEDS ORDERED: MEROPENEM 1 GM VIAL (RESTRICTED TO ID) IVPB ONE (05:44)
[2019-07-21] MEDS: HEPARIN NA (PORCINE) 5,000 UNITS/ML 1ML VIAL SQ SCH (05:51)
[2019-07-21] MEDS: MEROPENEM 1 GM in DEXTROSE 5%-WATER 100 ML IVPB SCH ×2 (05:51→13:11)
[2019-07-21 07:16] LABS: ALBUMIN 2.8 g/dl (3.4-5.0); BILIRUBIN,TOTAL 0.6 mg/dL (0.2-1); BLOOD UREA NITROGEN 20.9 mg/dL (7-18); CALCIUM 8.1 mg/dL (8.5-10.1); CREATININE 1.2 mg/dL (0.55-1.3); MAGNESIUM 1.8 mg/dL (1.8-2.4); PHOSPHOROUS 2.8 mg/dL (2.5-4.9); POTASSIUM 4.1 mmol/L (3.5-5.1); TOT PROT 5.7 g/dl (6.4-8.2)
[2019-07-21] MEDS ORDERED: TAMSULOSIN HCL 0.4 MG CAP PO SCH (08:30)
[2019-07-21] MEDS: LACTATED RINGERS SOLUTION 1,000 ML/1,000 ML INFUS.BAG IV SCH (09:02)
--- NOTE | 2019-07-21 09:08 | PN ---
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 Lee with failed OP Abx ppx as documented. Pending ID and urology consult. OBJECTIVE: Vital Signs Period Temp Pulse Resp BP Sys/Cabrera Pulse Ox Last 24 Hr 98.7 F-99.6 F 55-116 18-24 86-138/48-71 94-98 GENERAL: The patient is awake, alert, and fully oriented, in no acute distress. HEAD: Normal with no signs of trauma. EYES: PERRL, extraocular movements intact, sclera anicteric, conjunctiva clear. No ptosis. ENT: Ears normal, nares patent, oropharynx clear without exudates, moist mucous membranes. NECK: Trachea midline, full range of motion, supple. LUNGS: Breath sounds equal, clear to auscultation bilaterally, no wheezes, no crackles, no accessory muscle use. HEART: Regular rate and rhythm, S1, S2 without murmur, rub or gallop. ABDOMEN: Soft, nontender, nondistended, normoactive bowel sounds, no guarding, no rebound, no hepatosplenomegaly, no masses. EXTREMITIES: 2+ pulses, warm, well-perfused, no edema. NEUROLOGICAL: Cranial nerves II through XII grossly intact. Normal speech, gait not observed. PSYCH: Normal mood, normal affect. SKIN: Warm, dry, normal turgor, no rashes or lesions noted Laboratory Results - last 24 hr 07/20/19 07/20/19 07/20/19 14:30 14:30 14:30 WBC 22.8 H RBC 4.57 Hgb 15.2 Hct 44.7 MCV 97.7 H MCH 33.3 MCHC 34.1 RDW 13.2 Plt Count 109 L D MPV 9.5 D Absolute Neuts (auto) 21.4 H Neutrophils % 93.6 H D Neutrophils % (Manual) 62.8 Band Neutrophils % 23.5 Lymphocytes % 1.2 L D Lymphocytes % (Manual) 4.9 L Monocytes % 4.5 Monocytes % (Manual) 2 L Eosinophils % 0.3 D Eosinophils % (Manual) 0.0 Basophils % 0.4 Basophils % (Manual) 0.0 Myelocytes % (Man) 1 Promyelocytes % (Man) 0 Blast Cells % (Manual) 0 Nucleated RBC % 0 Metamyelocytes 3 H Hypochromia 0 Platelet Estimate Decreased Polychromasia 0 Poikilocytosis 0 Anisocytosis 0 Microcytosis 0 Macrocytosis 0 PT with INR INR PTT (Actin FS) VBG pH POC VBG pCO2 POC VBG pO2 VBG HCO3 VBG O2 Sat ([place]) VBG Base Excess Sodium 136 Potassium 4.5 Chloride 103 Carbon Dioxide 26 Anion Gap 7 L BUN 21.3 H Creatinine 1.5 H Est GFR (CKD-EPI)AfAm 53.14 Est GFR (CKD-EPI)NonAf 45.85 Random Glucose 91 Lactic Acid 3.6 H* Calcium 9.1 Phosphorus Magnesium Iron TIBC Iron Saturation Unsaturated IBC Ferritin Total Bilirubin 0.8 AST 35 ALT 54 Alkaline Phosphatase 89 Troponin I 0.04 Total Protein 7.2 Albumin 3.6 Urine Color Urine Appearance Urine pH Ur Specific [place] Urine Protein Urine Glucose (UA) Urine Ketones Urine Blood Urine Nitrite Urine Bilirubin Urine Urobilinogen Ur Leukocyte Esterase Urine WBC (Auto) Urine RBC (Auto) Urine Casts (Auto) U Epithel Cells (Auto) Urine Bacteria (Auto) Ur Random Creatinine Ur Random Sodium Ur Random Potassium Ur Random Chloride 07/20/19 07/20/19 07/20/19 14:30 14:30 17:14 WBC RBC Hgb Hct MCV MCH MCHC RDW Plt Count MPV Absolute Neuts (auto) Neutrophils % Neutrophils % (Manual) Band Neutrophils % Lymphocytes % Lymphocytes % (Manual) Monocytes % Monocytes % (Manual) Eosinophils % Eosinophils % (Manual) Basophils % Basophils % (Manual) Myelocytes % (Man) Promyelocytes % (Man) Blast Cells % (Manual) Nucleated RBC % Metamyelocytes Hypochromia Platelet Estimate Polychromasia Poikilocytosis Anisocytosis Microcytosis Macrocytosis PT with INR INR PTT (Actin FS) VBG pH 7.39 POC VBG pCO2 43.3 POC VBG pO2 < 49 H VBG HCO3 25.4 VBG O2 Sat ([place]) 76.3 VBG Base Excess 0.6 Sodium Potassium Chloride Carbon Dioxide Anion Gap BUN Creatinine Est GFR (CKD-EPI)AfAm Est GFR (CKD-EPI)NonAf Random Glucose Lactic Acid 2.7 H* Calcium Phosphorus Magnesium Iron TIBC Iron Saturation Unsaturated IBC Ferritin Total Bilirubin AST ALT Alkaline Phosphatase Troponin I Total Protein Albumin Urine Color Dk yellow Urine Appearance Clear Urine pH 5.5 D Ur Specific [place] 1.019 Urine Protein 2+ H Urine Glucose (UA) Negative Urine Ketones Trace H Urine Blood 2+ H Urine Nitrite Negative Urine Bilirubin Negative Urine Urobilinogen 0.2 Ur Leukocyte Esterase 2+ H Urine WBC (Auto) 21 Urine RBC (Auto) 26 Urine Casts (Auto) 6 U Epithel Cells (Auto) 3.8 Urine Bacteria (Auto) 2.2 Ur Random Creatinine Ur Random Sodium Ur Random Potassium Ur Random Chloride 07/20/19 07/20/19 07/20/19 17:53 19:00 21:45 WBC RBC Hgb Hct MCV MCH MCHC RDW Plt Count MPV Absolute Neuts (auto) Neutrophils % Neutrophils % (Manual) Band Neutrophils % Lymphocytes % Lymphocytes % (Manual) Monocytes % Monocytes % (Manual) Eosinophils % Eosinophils % (Manual) Basophils % Basophils % (Manual) Myelocytes % (Man) Promyelocytes % (Man) Blast Cells % (Manual) Nucleated RBC % Metamyelocytes Hypochromia Platelet Estimate Polychromasia Poikilocytosis Anisocytosis Microcytosis Macrocytosis PT with INR 13.80 H INR 1.17 H PTT (Actin FS) 34.5 VBG pH POC VBG pCO2 POC VBG pO2 VBG HCO3 VBG O2 Sat ([place]) VBG Base Excess Sodium Potassium Chloride Carbon Dioxide Anion Gap BUN Creatinine Est GFR (CKD-EPI)AfAm Est GFR (CKD-EPI)NonAf Random Glucose Lactic Acid 3.4 H* Calcium Phosphorus Magnesium Iron TIBC Iron Saturation Unsaturated IBC Ferritin Total Bilirubin AST ALT Alkaline Phosphatase Troponin I Total Protein Albumin Urine Color Urine Appearance Urine pH Ur Specific [place] Urine Protein Urine Glucose (UA) Urine Ketones Urine Blood Urine Nitrite Urine Bilirubin Urine Urobilinogen Ur Leukocyte Esterase Urine WBC (Auto) Urine RBC (Auto) Urine Casts (Auto) U Epithel Cells (Auto) Urine Bacteria (Auto) Ur Random Creatinine 60.0 Ur Random Sodium 10 L Ur Random Potassium 20.0 L Ur Random Chloride < 11 L 07/20/19 07/20/19 07/21/19 21:45 23:40 06:18 WBC RBC Hgb Hct MCV MCH MCHC RDW Plt Count MPV Absolute Neuts (auto) Neutrophils % Neutrophils % (Manual) Band Neutrophils % Lymphocytes % Lymphocytes % (Manual) Monocytes % Monocytes % (Manual) Eosinophils % Eosinophils % (Manual) Basophils % Basophils % (Manual) Myelocytes % (Man) Promyelocytes % (Man) Blast Cells % (Manual) Nucleated RBC % Metamyelocytes Hypochromia Platelet Estimate Polychromasia Poikilocytosis Anisocytosis Microcytosis Macrocytosis PT with INR INR PTT (Actin FS) VBG pH POC VBG pCO2 POC VBG pO2 VBG HCO3 VBG O2 Sat ([place]) VBG Base Excess Sodium 141 Potassium 4.1 Chloride 110 H Carbon Dioxide 27 Anion Gap 4 L BUN 20.9 H Creatinine 1.2 Est GFR (CKD-EPI)AfAm 69.60 Est GFR (CKD-EPI)NonAf 60.05 Random Glucose 111 H Lactic Acid 1.4 Calcium 8.1 L Phosphorus 2.8 Magnesium 1.8 Iron TIBC Iron Saturation Unsaturated IBC Ferritin Total Bilirubin 0.6 AST 19 ALT 37 Alkaline Phosphatase 62 Troponin I Total Protein 5.7 L Albumin 2.8 L Urine Color Urine Appearance Urine pH Ur Specific [place] Urine Protein Urine Glucose (UA) Urine Ketones Urine Blood Urine Nitrite Urine Bilirubin Urine Urobilinogen Ur Leukocyte Esterase Urine WBC (Auto) Urine RBC (Auto) Urine Casts (Auto) U Epithel Cells (Auto) Urine Bacteria (Auto) Ur Random Creatinine Cancelled Ur Random Sodium Ur Random Potassium Ur Random Chloride 07/21/19 07/21/19 06:18 06:18 WBC RBC Hgb Hct MCV MCH MCHC RDW Plt Count MPV Absolute Neuts (auto) Neutrophils % Neutrophils % (Manual) Band Neutrophils % Lymphocytes % Lymphocytes % (Manual) Monocytes % Monocytes % (Manual) Eosinophils % Eosinophils % (Manual) Basophils % Basophils % (Manual) Myelocytes % (Man) Promyelocytes % (Man) Blast Cells % (Manual) Nucleated RBC % Metamyelocytes Hypochromia Platelet Estimate Polychromasia Poikilocytosis Anisocytosis Microcytosis Macrocytosis PT with INR INR PTT (Actin FS) VBG pH POC VBG pCO2 POC VBG pO2 VBG HCO3 VBG O2 Sat ([place]) VBG Base Excess Sodium Potassium Chloride Carbon Dioxide Anion Gap BUN Creatinine Est GFR (CKD-EPI)AfAm Est GFR (CKD-EPI)NonAf Random Glucose Lactic Acid 1.5 Calcium Phosphorus Magnesium Iron 38 L TIBC 141 L Iron Saturation 26 Unsaturated IBC 103 L Ferritin 510.4 H Total Bilirubin AST ALT Alkaline Phosphatase Troponin I Total Protein Albumin Urine Color Urine Appearance Urine pH Ur Specific [place] Urine Protein Urine Glucose (UA) Urine Ketones Urine Blood Urine Nitrite Urine Bilirubin Urine Urobilinogen Ur Leukocyte Esterase Urine WBC (Auto) Urine RBC (Auto) Urine Casts (Auto) U Epithel Cells (Auto) Urine Bacteria (Auto) Ur Random Creatinine Ur Random Sodium Ur Random Potassium Ur Random Chloride Active Medications Generic Name Dose Route Start Last Admin Trade Name Freq PRN Reason Stop Dose Admin Acetaminophen 1,000 mg 07/20/19 17:02 Ofirmev Injection - IVPB Q6H PRN FEVER Albuterol/Ipratropium 1 amp 07/20/19 22:25 07/20/19 22:44 Duoneb - NEB 1 amp Q4H PRN Administration SHORTNESS OF BREATH Aspirin 81 mg 07/21/19 10:00 07/21/19 09:02 Asa - PO 81 mg DAILY BRISA Administration Heparin Sodium (Porcine) 5,000 unit 07/20/19 22:00 07/21/19 05:51 Heparin - SQ 5,000 unit TID BRISA Administration Piperacillin Sod/Tazobactam 50 mls @ 100 mls/hr 07/20/19 18:00 Sod 3.375 gm/ Dextrose IVPB Q8H-IV BRISA Protocol Meropenem 1 gm/ Dextrose 100 mls @ 200 mls/hr 07/20/19 17:45 IVPB Q12H BRISA Lactated Ringer's 1,000 ml in 1,000 mls @ 100 mls/hr 07/20/19 20:30 07/21/19 09:02 Lactated Ringers Solution IV 100 mls/hr ASDIR BRISA Administration Tamsulosin HCl 0.4 mg 07/21/19 08:30 07/21/19 08:02 Flomax - PO 0.4 mg 0830 BRISA Administration ASSESSMENT/PLAN: Patient presents with sepsis following a urological procedure placing him at risk for MDROs. Followup ID and urology consults, continue abx. Monitor pulmonary workup; he is a known cigar smoker and may have a history of COPD. Problems include: -Sepsis secondary to upper urinary tract infection with recent instrumentation *Broad spectrum abx, lactic acidosis resolved. Less tachy, monitor on floor. Sepsis improved clinically. -Recent obstructive uropathy with hx hydronephrosis s/p 07/13 stenting *Obstruction was secondary to UPJ obstruction; merrem per guidelines. Followup spiral CT. -Possible PNA-less likely *Would be CAP if present; needs atypical coverage as well but will hold off given that the changes on CXR are mostly notable for congestion and a prominent mediastinum. Placing on incentive spirometry, followup echo and CT, monitor on floor. -History of BPH *Continue tamsulosin -Ongoing Tobacco Use with possible COPD *OP pulmonary referral for PFTs, consider PO Prednisone burst x5 days. PRN albuterol and incentive carlos ordered. -History of HTN -History of HLD *Resume home tx when appropriate -Macrocytosis without anemia *Following up B12/Folic acid. Iron studies noted; replace with PO iron when not acutely ill -Thrombocytopenia *Trend CBC, FU HIV and HCV Ab. Consider heme consult if worsens. Full Code Visit type - Emergency Visit Emergency Visit: Yes ED Registration Date: 07/20/19 Care time: The patient presented to the Emergency Department on the above date and was hospitalized for further evaluation of their emergent condition. - New Patient This patient is new to me today: No - Critical Care Critical Care patient: No
[2019-07-21 09:57] LABS: BASO % 0.2 % (0-2.0); EOS % 2.5 % (0-4.5); HEMATOCRIT 39.5 % (35.4-49); HEMOGLOBIN 13.1 GM/dL (11.7-16.9); MCHC 33.2 g/dl (32.0-35.9); MEAN CELL VOLUME 99.5 fl (80-96); MEAN PLT VOLUME 10.4 fl (7.5-11.1); MONO % 5.2 % (3.8-10.2); NEUT % 87.1 % (42.8-82.8); PLATELET COUNT 99 K/MM3 (134-434); RBC 3.97 M/mm3 (4.00-5.60); RDW 13.4 % (11.9-15.9); WHITE BLOOD COUNT 17.3 K/mm3 (4.0-10.0)
[2019-07-21] MEDS ORDERED: predniSONE 20 MG TABLET (UD) PO SCH (10:00)
[2019-07-21] MEDS ORDERED: ASPIRIN 81 MG CHEWABLE TABLETS PO SCH (10:00)
[2019-07-21 10:20] LABS: N-TERMINAL BNP 1740.2 pg/ml (5-125)
[2019-07-21] MEDS ORDERED: MAGNESIUM SULF 50% (8.12 MEQ/2 ML-1 GM VIAL) IVPB ONE (10:23)
[2019-07-21] MEDS ORDERED: FUROSEMIDE 40 MG/4 ML INJECTABLE VIAL IVPUSH ONE (10:24)
[2019-07-21] MEDS ORDERED: ACETAMINOPHEN 1000 MG/100 ML VIAL (NON FORMULARY) IVPB PRN (13:03)
--- NOTE | 2019-07-21 14:12 | CON.PULM ---
Consult Consult Specialty:: PULMONARY Referred by:: MARLENE Reason for Consultation:: SOB - History of Present Illness Chief Complaint: SOB History of Present Illness: 74y M hx of hx of htn, hld, kidney stones sp recent cysto/stent placement, ? recent liver bx at [facility] presents for evaluation of sob and discomfort right flank. Pt had gone to urologist for an outpatient fu and was sent to the ED as he was feeling sob. Pt states he is fatigued, has a nonproductive cough and feeling sob/michael. Pt denies any cp, n/v, headache, he is able to urinate freely. 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 No: Hemodialysis Heme/Onc: No: Anemia Psych: No: Addictions Musculoskeletal: No: Chronic low back pain - Past Surgical History Additional Surgical History: cystoscopy/stent placement - Alcohol/Substance Use Hx Alcohol Use: Yes (SOCIAL-STOPPED 5 WEEKS AGO) History of Substance Use: reports: None - Smoking History Smoking history: Former smoker Have you smoked in the past 12 months: No Aproximately how many cigarettes per day: 0 If you are a former smoker, when did you quit?: 1 year ago - Social History Usual Living Arrangement: Alone ADL: Independent Place of : Other History of Recent Travel: No Home Medications - Allergies Allergies/Adverse Reactions: Allergies Allergy/AdvReac Type Severity Reaction Status Date / Time ciprofloxacin [From Cipro] Allergy Swelling Verified 07/20/19 12:28 tetracycline [Tetracycline] Allergy Rash Verified 07/20/19 12:28 potassium clavulanate AdvReac Verified 07/20/19 12:28 [From Augmentin] - Home Medications Home Medications: Ambulatory Orders Lisinopril [Zestril] 40 mg PO DAILY 05/08/14 Omeprazole [Prilosec (RX)] 40 mg PO DAILY 05/08/14 Aspirin [ASA -] 1 tab PO DAILY 07/09/19 Tamsulosin HCl [Flomax -] 1 cap PO DAILY 07/09/19 Fenofibrate 160 mg PO DAILY 07/20/19 Nitrofurantoin Monohyd/M-Cryst [Macrobid -] 100 mg PO BID 07/20/19 Oxycodone HCl/Acetaminophen [Percocet 5-325 mg Tablet] 1 tab PO Q6H PRN Family Medical History Family History: Unremarkable Review of Systems - Review of Systems Constitutional: reports: Fever, Loss of Appetite Eyes: denies: Blurred Vision HENT: denies: Difficult Swallowing Neck: denies: Decreased ROM Cardiovascular: reports: Shortness of Breath. denies: Chest Pain, Palpitations Respiratory: reports: Exercise Intolerance, Orthopnea, SOB, SOB on Exertion. denies: Hemoptysis Gastrointestinal: reports: Abdominal Pain. denies: Diarrhea Genitourinary: reports: Flank Pain Breasts: reports: No Symptoms Reported Musculoskeletal: reports: No Symptoms Physical Exam Vital Sings: Vital Signs Temperature 99.0 F 07/21/19 13:09 Pulse Rate 70 07/21/19 13:09 Respiratory Rate 07/21/19 13:09 Blood Pressure 121/60 07/21/19 13:09 O2 Sat by Pulse Oximetry (%) 94 L 07/20/19 21:00 Constitutional: Yes: Anxious Eyes: Yes: EOM Intact HENT: Yes: Normocephalic Neck: Yes: Trachea Midline Cardiovascular: Yes: Regular Rate and Rhythm Respiratory: Yes: Other (scattered crackles with egophony and bronchial breath sounds noted left mid posterior chest) Gastrointestinal: Yes: Abdomen, Obese Renal/: Yes: CVA Tenderness - Right Breast(s): Yes: WNL Musculoskeletal: Yes: WNL Extremities: Yes: WNL Neurological: Yes: Alert Labs: CBC, BMP 07/21/19 07:02 07/21/19 06:18 Imaging - Results Chest X-ray: Report Reviewed, Image Reviewed Cat Scan: Report Reviewed, Image Reviewed Problem List - Problems (1) Sepsis Code(s): A41.9 - SEPSIS, UNSPECIFIED ORGANISM (2) Hematuria Code(s): R31.9 - HEMATURIA, UNSPECIFIED (3) Renal colic Code(s): N23 - UNSPECIFIED RENAL COLIC (4) ILD (interstitial lung disease) Code(s): J84.9 - INTERSTITIAL PULMONARY DISEASE, UNSPECIFIED (5) Pneumonia Code(s): J18.9 - PNEUMONIA, UNSPECIFIED ORGANISM Assessment/Plan AGREE WITH EMPIRIC COVERAGE FOR BOTH LUNG AND ORGANISMS WOULD D/C PREDNISONE AWAITING CT CHEST AND SPIRAL CT RIGHT KIDNEY IV FLUIDS/TYLENOL DVT PROPHYLAXSIS PATIENT TRANSFERRED TO TELE AWAITING ID INPUT WILL FOLLOW Catina PACKER MD
[2019-07-21] MEDS ORDERED: AZITHROMYCIN IVPB 500 MG/250 ML BAG IVPB SCH ×2 (16:15→19:30)
--- NOTE | 2019-07-21 16:53 | CONS ---
DATE OF CONSULTATION: DATE OF DICTATION: 07/21/2019 CARDIOLOGY CONSULTATION CONSULTATION REQUESTED BY: Rishi Lara M.D. CHIEF COMPLAINT: 1. Shortness of breath on the day of admission. 2. Blurred vision and lightheadedness. 3. History of chills, rigors and cough. HISTORY OF PRESENT ILLNESS: The patient is a 74-year-old [place] gentleman with history of hypertension, dyslipidemia, and apparently abnormal liver function tests. The patient states that he had been experiencing abdominal discomfort for approximately 1 month and was evaluated by Dr. Lopez, who subjected him to a CT scan and he was found to have a renal stone involving the right ureter. He recently underwent extraction of the renal stone and stenting, which was followed by hematuria and 3 days after the procedure he started developing right flank/lumbar discomfort, and this was accompanied by rigors, chills and he felt feverish, complained of fatigue and on the day of admission he woke up with shortness of breath associated with lightheadedness and blurred vision. He decided to go and see his urologist and was advised hospitalization. There is no history of chest pain or discomfort, either at rest or with exertion. No history of palpitations, dizziness, presyncope or syncope. He continues to have ongoing dyspnea and has a nonproductive cough. He complains of generalized weakness and lethargy. He does give history of a heart murmur. There is no history of rheumatic fever. He has had a recent liver biopsy. There is no history of diabetes mellitus. PAST MEDICAL HISTORY: As mentioned in the history of present illness. PAST SURGICAL HISTORY: 1. Recent retrieval of a renal calculus, followed by ureteral stenting. 2. Status post appendectomy. 3. Status post bilateral arthroscopic procedures on both knees, including meniscectomy. SOCIAL HISTORY: . He used to be a heavy cigarette smoker, starting at the age of 14 and stopped 5 years ago. He currently is smoking 4 cigars per day. He is a heavy drinker. He used to drink half a gallon on a weekly basis and stopped 5 weeks ago. No history of drug use. He drinks 1 cup of coffee. He has 2 sons and a daughter who are apparently healthy. FAMILY HISTORY: Father at the age of 90. He apparently had heart disease and had suffered a stroke. He had a permanent pacemaker and also had COPD. Mother is alive at age 94. She is diabetic. He has 1 sister who is 73 years of age and has lupus erythematosus since the age of 16. ALLERGIES TO MEDICATIONS: 1. TETRACYCLINE. 2. CIPRO. 3. AUGMENTIN. MEDICATIONS: 1. Prednisone 60 mg p.o. daily. 2. Flomax 0.4 mg p.o. daily. 3. Acetaminophen 1000 mg IV piggyback q.6 h. p.r.n. 4. Meropenem 1 g IV q.12 h. 5. DuoNeb 1 ampule via nebulizer q.4 h. p.r.n. 6. Aspirin 81 mg p.o. daily. Medications as documented in the ER resident's note are as follows: 1. Lisinopril 40 mg p.o. daily. 2. Prilosec 40 mg p.o. daily. 3. Aspirin 81 mg p.o. daily. 4. Flomax 0.4 mg p.o. daily. 5. Fenofibrate 160 mg p.o. daily. 6. Nitrofurantoin (Macrobid) 100 mg p.o. b.i.d. 7. Oxycodone/acetaminophen 5/325 mg 1 tablet q.6 h. p.r.n. REVIEW OF SYSTEMS: Constitutional: History of chills, fever and rigors. No history of unintentional weight loss. HEENT: No history of headaches, history of blurred vision. No history of diplopia. No history of epistaxis. Respiratory: See history of present illness. No history of hemoptysis or tuberculosis. Cardiovascular: See history of present illness. Gastrointestinal: No history of nausea, vomiting, melena or hematemesis. No history of change in bowel habits. History of abdominal pain as described. Genitourinary: See history of present illness. No history of dysuria or frequency. Recent postprocedure hematuria. Musculoskeletal: History of psoriatic arthritis. No history of myalgias. Endocrine: No history of polyuria or polydipsia. No history of intolerance to cold or warm weather. Hematological: ? history of elevated serum iron levels. No history of bleeding, ecchymosis, or anemia. PHYSICAL EXAMINATION: General: A 74-year-old gentleman at the time of examination appears febrile, slightly tachypneic. No pallor, cyanosis, clubbing or jaundice. Vital Signs: Weight 83.098 kg. Blood pressure was 132/65 mmHg. Pulse 69 beats per minute and regular. Respirations 20 per minute. Temperature at 11:52 was 100.4 degrees Fahrenheit. Oxygen saturation on 2 L was 97%. Neck: Supple. No jugular venous distention. Hepatojugular reflux was negative. Carotids were 2+, and upstrokes were normal. Faint radiation of murmur bilaterally. No thyromegaly was present. There was no submandibular or supraclavicular lymphadenopathy. Heart: PMI was in the 5th intercostal space. No heaves or thrills. S1 was normal. S2 was split. An ejection systolic murmur grade 2/6 was heard at the 2nd right intercostal space along the left sternal border and apex, and ended in early to mid-systole. No diastolic murmur or gallops were heard. Lungs: Bilateral posterior crepitations, more pronounced at the right base. Chest: Normal AP diameter. Expansion was symmetrical. Abdomen: Protuberant, soft. There was mild tenderness involving the right flank and lumbar area on palpation. No rebound tenderness was elicited. There was no hepatosplenomegaly appreciated. Bowel sounds were present. No bruits were heard. Extremities: No calf tenderness or dependent edema. Femoral pulses were 2+. Dorsalis pedis pulses were 2+. Posterior tibial pulses were not palpable. IMAGING: Chest x-ray on July 20, 2019, impression: A single AP view of the chest reveals a slightly weaker inspiration that on December 18, 2018, with some congestive changes and prominent mediastinum. The angles are sharp. The soft tissues are intact. There are degenerative changes with right shoulder sclerotic finding and/or calcification. Correlation recommended. ECG on July 20, 2019, done in the ER, revealed: Sinus tachycardia at 111 beats per minute, intra-atrial conduction abnormality, left axis deviation, atypical R-wave progression in V2, low voltage in limb leads, nonspecific ST changes. No previous ECG was available for comparison. LABORATORY DATA: CBC on July 21, 2019: WBC 17,300, hemoglobin 13.1 g/dL; differential with neutrophils 87.1%, lymphocytes 5%, monocytes 5.2%, eosinophils 2.5%, basophils 0.2%. Metamyelocytes were noted on July 20, 2019, 3%. Platelets were recorded as 99,000. Chemistry on July 21, 2019: Sodium 141, potassium 4.1, chloride 110, CO2 of 27 mmol/L, BUN 20.9, creatinine 1.2 mg/dL. Lactic acid was initially elevated at 2.7 and 3.4, and repeat on July 21, 2019, was 1.5. Serum iron was 39 (low). TIBC 141 (low). Ferritin level was 510.4 (high). Total bilirubin 0.6. AST 19, ALT 37, alkaline phosphatase 62. BNP 1740.2 pg. PT 13.80. INR 1.17. Urinalysis on July 20, 2019: 2+ protein, trace ketones, 2+ blood, 2+ urine leukocyte esterase. IMPRESSION: 1. Dyspnea associated with elevated B natriuretic peptide, consistent with congestive heart failure. 2. Fever, rigors, chills and nonproductive cough. Etiology: A. Secondary to pneumonia. B. Sepsis. C. Related to recent urological procedure/urinary tract infection. 3. History of psoriatic arthritis. 4. Hypertension, hypertensive cardiovascular disease. 5. Chronic obstructive pulmonary disease needs exclusion. 6. Thrombocytopenia, etiology to be determined. 7. Systolic murmur compatible with aortic valve disease. Aortic stenosis needs exclusion. 8. Alcohol abuse. 9. Tobacco abuse. 10. History of hypercholesterolemia. RECOMMENDATIONS: 1. Echocardiogram. 2. Follow up ECG and enzymes. 3. Chest and abdominal CT. 4. Nasal swab for flu. 5. Consider diuretics under close monitoring of electrolytes. 6. Cessation of smoking and ethanol abuse. PROGNOSIS: Critical. Thank you for your referral. Mitali [id number]
--- NOTE | 2019-07-21 16:54 | PN ---
Progress Note (short form) - Note Progress Note: ID consult dictated imp/reccd 74 yo man admitted s/p cysto and stent for right upj obstruction on 07/13- discharged on macrobid developed bleeding and bladder and penil pain post op for several days, then 3 days ago developed right flank pain- on Tuesday he woke up SOB went to see his urologist who sent him to ED no history of UTIS no other recent antibiotics no fevers mild cough urinatieng clear urine now smokes cigars +ETOH use last travel [place] Jul 2018 lives alone recent liver biopsy at [facility] for abnl LFTs allergic to cipro swelling tetracycline mouth and testicular blisters augmentin- bleeding gums in ED noted to have leukocytosis and lactic acidosis cxray with bilateral infiltrates vs chf known to have heart murmur given rocephin/zithromax and then meropenem R/o pneumonia r/o pyelonephritis ?allergic reaction to macrobid- can cause pulmonary symptoms murmur- ?CHF continue rocephin/zithromax for CAP legionella urinary antigen f/u imaging studies echo influenza screen Problem List - Problems (1) Pneumonia Code(s): J18.9 - PNEUMONIA, UNSPECIFIED ORGANISM (2) UTI (urinary tract infection) Code(s): N39.0 - URINARY TRACT INFECTION, SITE NOT SPECIFIED (3) Allergic reaction caused by a drug Code(s): T78.40XA - ALLERGY, UNSPECIFIED, INITIAL ENCOUNTER (4) Cardiac murmur Code(s): R01.1 - CARDIAC MURMUR, UNSPECIFIED
--- NOTE | 2019-07-21 17:31 | CONS ---
DATE OF CONSULTATION: DATE OF DICTATION: 07/21/2019 INFECTIOUS DISEASE CONSULTATION REQUESTED BY: The hospitalist service. HISTORY OF PRESENT ILLNESS: This is a 74-year-old man with past medical history of psoriatic arthritis for which he is not on any medications. He has a history of hypertension and hyperlipidemia. He had a recent liver biopsy at [facility], the results of which are not back, for abnormal LFTs, and a recent cystoscopy done on July 13 for a right UPJ obstruction with hydronephrosis, for which he underwent a cystoscopy with UPJ dilatation and stent. He was discharged on the , on MACROBID. He reports after going home that he had bladder and penile pain with hematuria that eventually resolved, but he ended up with right flank pain for the last 3 to 4 days. On Tuesday he awoke with shortness of breath. He was feeling fatigued. He had no fevers. He noted a nonproductive cough. He has never had any heart failure in the past, and he denies any leg edema. He is now urinating well, with clear urine. In the emergency room, he was evaluated. He was noted to have a white count of 22.8. He was noted to have a creatinine of 1.5 and a lactic acid of 3.5. He was not hypoxic. He had a chest x-ray done that was notable for "congestive changes," and he was admitted for further evaluation. He was given ceftriaxone and Zithromax in the emergency room, and switched to meropenem for possible urinary sepsis. SOCIAL HISTORY: He smokes cigars. He is a former cigarette smoker. He lives alone. 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 His last travel was [place] 1 year ago. He lives in an apartment. He has not had any recent dental work, and he is not sexually active. He has been HIV tested in the past. He admits to alcohol use but no drug use. FAMILY HISTORY: Noncontributory. PAST MEDICAL HISTORY: Notable for a heart murmur which he had echo'd in the past. He has a history of hypertension and hyperlipidemia. He has psoriatic arthritis , for which he does not take any medicine. He has had abnormal LFTs, for which he recently underwent a liver biopsy. Looking in the computer, he has also had chronic thrombocytopenia of unclear etiology. REVIEW OF SYSTEMS: He denies headache, nausea, vomiting, and diarrhea. His dysuria has resolved, and he is voiding freely. He has no constipation. Currently his flank pain has resolved as well. PHYSICAL EXAMINATION: Vital Signs: His Tmax was 100.4 rectally. Current temperature is 99. Pulse of 70, blood pressure 121/60, respiratory rate is 19. HEENT: He is normocephalic. His eyes are anicteric. He has very poor dentition. He has no thrush. Neck: Supple. Lungs: Bilateral rhonchi. Heart: He has a 2/6 holosystolic murmur, heard best at the left upper sternal border. Abdomen: Soft and nontender. He currently has no flank pain. He has no suprapubic discomfort. Extremities: Without edema. Skin: He has no rash. DIAGNOSTIC STUDIES: White count is 17.8. Hemoglobin is 13.1. Platelets are 99 ,000. His INR is 1.15. Chemistries are notable for BUN of 20 and creatinine 1.2. His lactic acid is now 1.5. LFTs are normal. His urinalysis has 2+ blood with 2+ leukocytes and 21 white cells. He has a known prior hepatitis A serology is positive, with negative hepatitis B serology and hepatitis C serology from April of this year. His HIV is pending. His blood cultures are negative in 24 hours, as well as urine, and sputum culture is pending. SUMMARY: This is a 74-year-old man with leukocytosis, lactic acidosis and shortness of breath, status post recent cystoscopy. Would rule out pneumonia, rule out pyelonephritis. Question allergic reaction to Macrobid? Would continue Rocephin and Zithromax . wouldstop his Macrobid. Obtain Legionella urinary antigen. Follow up imaging studies. Would get CAT scan of the chest. A spiral CT has been ordered. An echo has been ordered as well. HIV testing. I would add an influenza screen. Further recommendations to follow. IVON VARELA M.D. [id number] MTDD
[2019-07-21] MEDS ORDERED: MEROPENEM 1 GM in DEXTROSE 5%-WATER 100 ML IVPB SCH (17:45)
[2019-07-21] MEDS: CEFTRIAXONE 2 GM in DEXTROSE 5%-WATER 100 ML IVPB SCH (18:01)
[2019-07-21] MEDS: ALBUTEROL SO4 2.5/IPRATROPIUM 0.5 INH SOL 3 ML VIAL.NEB. NEB PRN (20:40)
[2019-07-21] MEDS: AZITHROMYCIN IVPB 500 MG/250 ML BAG IVPB SCH (22:04)
[2019-07-22 07:51] LABS: ALBUMIN 2.9 g/dl (3.4-5.0); BILIRUBIN,TOTAL 0.4 mg/dL (0.2-1); BLOOD UREA NITROGEN 26.1 mg/dL (7-18); CALCIUM 8.6 mg/dL (8.5-10.1); CREATININE 1.2 mg/dL (0.55-1.3); POTASSIUM 4.2 mmol/L (3.5-5.1); TOT PROT 5.9 g/dl (6.4-8.2)
[2019-07-22 08:45] LABS: BASO % 0.4 % (0-2.0); EOS % 0.4 % (0-4.5); HEMATOCRIT 36.6 % (35.4-49); HEMOGLOBIN 12.1 GM/dL (11.7-16.9); LYMPH % 12.8 % (8-40); MCH 32.8 pg (25.7-33.7); MCHC 33.2 g/dl (32.0-35.9); MEAN CELL VOLUME 98.7 fl (80-96); MEAN PLT VOLUME 10.3 fl (7.5-11.1); MONO % 4.5 % (3.8-10.2); NEUT % 81.9 % (42.8-82.8); PLATELET COUNT 109 K/MM3 (134-434); RBC 3.71 M/mm3 (4.00-5.60); RDW 12.9 % (11.9-15.9); WHITE BLOOD COUNT 16.4 K/mm3 (4.0-10.0)
[2019-07-22] MEDS ORDERED: DEXTROSE 5%-WATER 100 ML IVPB ONE (08:48)
[2019-07-22] MEDS: TAMSULOSIN HCL 0.4 MG CAP PO SCH (09:17)
[2019-07-22] MEDS: CEFTRIAXONE 2 GM in DEXTROSE 5%-WATER 100 ML IVPB SCH (09:17)
[2019-07-22] MEDS: ASPIRIN 81 MG CHEWABLE TABLETS PO SCH (09:17)
[2019-07-22] MEDS ORDERED: predniSONE 20 MG TABLET (UD) PO SCH (10:00)
--- NOTE | 2019-07-22 11:39 | PN ---
Progress Note (short form) - Note Progress Note: feels better today dry cough Vital Signs Period Temp Pulse Resp BP Sys/Cabrera Pulse Ox Last 24 Hr 97.7 F-99.0 F 45-70 19-20 108-132/50-63 97 cor-rrr murmur unchanged lungs scattered rhonchi abd soft,nt ext no edema CBC, BMP 07/22/19 05:50 07/22/19 05:50 Microbiology 07/20/19 18:45 Sputum - Expectorated Gram Stain - Final 07/20/19 18:45 Sputum - Expectorated Sputum Culture - Preliminary NORMAL RESPIRATORY MARTA 07/20/19 14:30 Blood - Peripheral Venous Blood Culture - Preliminary NO GROWTH OBTAINED AFTER 24 HOURS, INCUBATION TO CONTINUE FOR 4 DAYS. 07/20/19 14:30 Blood - Peripheral Venous Blood Culture - Preliminary NO GROWTH OBTAINED AFTER 24 HOURS, INCUBATION TO CONTINUE FOR 4 DAYS. 07/20/19 14:30 Urine - Urine Clean Catch Urine Culture - Final NO GROWTH OBTAINED urinary antignes pending Current Medications Acetaminophen (Ofirmev Injection -) 1,000 mg IVPB Q6H PRN PRN Reason: FEVER Albuterol/Ipratropium (Duoneb -) 1 amp NEB Q4H PRN PRN Reason: SHORTNESS OF BREATH Last Admin: 07/21/19 20:40 Dose: 1 amp Aspirin (Asa -) 81 mg PO DAILY [facility] Last Admin: 07/22/19 09:17 Dose: 81 mg Ceftriaxone Sodium 2 gm/ (Dextrose) 100 mls @ 100 mls/hr IVPB DAILY [facility]; Protocol Last Admin: 07/22/19 09:17 Dose: 100 mls/hr Azithromycin (Zithromax 500mg Ivpb (Pre-Docked)) 500 mg in 250 mls @ 250 mls/ hr IVPB Q24H [facility] Last Admin: 07/21/19 22:04 Dose: 250 mls/hr Prednisone (Deltasone -) 60 mg PO DAILY [facility] Last Admin: 07/22/19 09:17 Dose: 60 mg Tamsulosin HCl (Flomax -) 0.4 mg PO 0830 [facility] Last Admin: 07/22/19 09:17 Dose: 0.4 mg a/p R/o pneumonia r/o pyelonephritis ?allergic reaction to macrobid- can cause pulmonary symptoms continue rocephin/zithromax for CAP legionella urinary antigen f/u imaging studies-results pending echo influenza screen ordered clinically improved
--- NOTE | 2019-07-22 12:00 | PN ---
Progress Note (short form) - Note Progress Note: PULMONARY ID EVAL APPRECIATED CT'S DONE YESTERDAY AWAITING OFFICIAL READINGS VSS/SUBJECTIVE IMPROVEMENT ANICTERIC SCATTERED CRACKLES B/L S1S2 BS+/LESS DISCOMFORT RIGHT FLANK NO EDEMA LABS/MEDS/NOTES REVIEWED AWAIT OFFICIAL IMAGING REPORT AGREE WITH EMPIRIC COVERAGE FOR BOTH LUNG AND ORGANISMS WOULD D/C PREDNISONE AWAITING CT CHEST AND SPIRAL CT RIGHT KIDNEY IV FLUIDS/TYLENOL DVT PROPHYLAXSIS Catina PACKER MD Problem List - Problems (1) Sepsis Code(s): A41.9 - SEPSIS, UNSPECIFIED ORGANISM (2) Hematuria Code(s): R31.9 - HEMATURIA, UNSPECIFIED (3) Renal colic Code(s): N23 - UNSPECIFIED RENAL COLIC (4) ILD (interstitial lung disease) Code(s): J84.9 - INTERSTITIAL PULMONARY DISEASE, UNSPECIFIED (5) Pneumonia Code(s): J18.9 - PNEUMONIA, UNSPECIFIED ORGANISM
--- NOTE | 2019-07-22 14:38 | PN ---
Progress Note, Physician Chief Complaint: doing well, breathing better , has been having diarroea since am, went 4 times, - Current Medication List Current Medications: Active Medications Acetaminophen (Ofirmev Injection -) 1,000 mg IVPB Q6H PRN PRN Reason: FEVER Albuterol/Ipratropium (Duoneb -) 1 amp NEB Q4H PRN PRN Reason: SHORTNESS OF BREATH Last Admin: 07/21/19 20:40 Dose: 1 amp Aspirin (Asa -) 81 mg PO DAILY [facility] Last Admin: 07/22/19 09:17 Dose: 81 mg Ceftriaxone Sodium 2 gm/ (Dextrose) 100 mls @ 100 mls/hr IVPB DAILY [facility]; Protocol Last Admin: 07/22/19 09:17 Dose: 100 mls/hr Azithromycin (Zithromax 500mg Ivpb (Pre-Docked)) 500 mg in 250 mls @ 250 mls/ hr IVPB Q24H [facility] Last Admin: 07/21/19 22:04 Dose: 250 mls/hr Tamsulosin HCl (Flomax -) 0.4 mg PO 0830 [facility] Last Admin: 07/22/19 09:17 Dose: 0.4 mg - Objective Vital Signs: Vital Signs Temperature 97.8 F 07/22/19 09:00 Pulse Rate 45 L 07/22/19 09:00 Respiratory Rate 20 07/22/19 09:00 Blood Pressure 199/66 H 07/22/19 09:00 O2 Sat by Pulse Oximetry (%) 100 07/22/19 09:00 Constitutional: Yes: Well Nourished, No Distress Eyes: Yes: WNL, EOM Intact HENT: Yes: WNL, Normocephalic Neck: Yes: WNL, Supple, Trachea Midline Cardiovascular: Yes: Regular Rate and Rhythm Respiratory: Yes: Regular Gastrointestinal: Yes: Normal Bowel Sounds, Soft Extremities: Yes: WNL Neurological: Yes: WNL Labs: CBC, BMP 07/22/19 05:50 07/22/19 05:50 INR, PTT INR 1.17 (0.83-1.09) H 07/20/19 19:00 Impression/Plan Impression/Plan: A/P Problems include: -Sepsis secondary to upper urinary tract infectionand possible gu source, Sepsis improved clinically. new onset diarroea, will order he stool studies , and with c diff, pt on abx more than 48 h, -congestion and a prominent mediastinum. Placing on incentive spirometry, doing well, better, stopped prednisone as per pulmonology, and monitor, and continue inhalers, -History of BPH *Continue tamsulosin - -History of HTN, uncotrolled will resume lisinopril, -History of HLD *Resume home tx when appropriate -Thrombocytopenia *Trend CBC, FU HIV and HCV Ab. Consider heme consult if worsens. Visit type - Emergency Visit Emergency Visit: No - New Patient This patient is new to me today: Yes Date on this admission: 07/26/19 - Critical Care Critical Care patient: No - Discharge Referral Referred to [facility] Med P.C.: No
[2019-07-22] MEDS: LISINOPRIL 10 MG TABLET (FP) PO SCH (15:07)
--- NOTE | 2019-07-22 16:06 | CONS ---
DATE OF CONSULTATION: DATE OF DICTATION: 07/22/2019 The patient was admitted via the emergency room on July 20, 2019. The patient is a 74-year-old male with history of right ureteropelvic junction obstruction on July 13, 2019. The patient underwent a cystoscopy, right retrograde pyelogram, right laser incision of UPJ stricture, and placement of a right JJ stent. He presented Tuesday to the office with frequency, dysuria, flank pain, and shortness of breath. He was advised to go to the emergency room. In the emergency room, he was admitted with a diagnosis of congestive heart failure. The patient does have history of high blood pressure as well as dyslipidemia. He stated that he began having shortness of breath Solis morning and it has increased in severity. He also complains of a nonproductive cough. Patient also complains of dysuria with blood-tinged urine. He denies fever or chills. The patient does smoke cigarettes. He denies any ethanolism. He is allergic to CIPRO, TETRACYCLINE, and AUGMENTIN. His home medications are Zestril, Prilosec, aspirin, Flomax, fenofibrate, Macrobid. In the emergency room, his temperature was 99.6, pulse 116, respiration 24, blood pressure 118/53, and O2 saturation of 98. His white count was 22,800, hemoglobin 15.2, hematocrit 44.7, platelets were 109. The patient's urine revealed a large amount of blood and bacteria but negative nitrites. The patient is admitted with urosepsis, possible lung infiltrate, lactic acidosis, anemia, acute kidney insufficiency, history if high blood pressure and dyslipidemia. He was commenced on meropenem. The patient underwent a CT of his abdomen and pelvis on the next day and that revealed extensive interstitial lung disease that may be chronic. There is interval bibasilar atelectasis and small bilateral pleural effusions. Could not rule out pneumonia. Calcified intra-carinal lymph node measuring [address] scan without contrast revealed a normal liver. The adrenal glands were normal. There were bilateral large renal simple cysts and there was a right ureteral stent in satisfactory position. There was also mild hydronephrosis. The patient's urine culture revealed no growth. Presently, the patient is in no apparent distress. His abdomen is soft. There is mild right CVA tenderness. Genitalia are atraumatic, testes are normal in size and consistency. Prostate is 2+, smooth, benign, and nontender. Impression at present is urosepsis post procedure. He is improving clinically. Will continue patient on Flomax for his prostatism. Will follow him in office for his chronic right ureteropelvic junction obstruction. MADELINE PEMBERTON M.D. [id number]
[2019-07-22] MEDS: ALBUTEROL SO4 2.5/IPRATROPIUM 0.5 INH SOL 3 ML VIAL.NEB. NEB PRN (20:35)
[2019-07-22] MEDS: AZITHROMYCIN IVPB 500 MG/250 ML BAG IVPB SCH (20:52)
[2019-07-22] MEDS: FAMOTIDINE 10 MG TABLET PO SCH (21:26)
[2019-07-23] MEDS: METOCLOPRAMIDE HCL 10 MG TABLET (FP) PO SCH ×3 (06:18→16:51)
[2019-07-23 06:45] LABS: BASO % 0.2 % (0-2.0); EOS % 0.3 % (0-4.5); HEMATOCRIT 36.9 % (35.4-49); HEMOGLOBIN 12.5 GM/dL (11.7-16.9); LYMPH % 17.1 % (8-40); MCH 33.6 pg (25.7-33.7); MEAN CELL VOLUME 98.9 fl (80-96); MEAN PLT VOLUME 10.5 fl (7.5-11.1); MONO % 4.3 % (3.8-10.2); NEUT % 78.1 % (42.8-82.8); PLATELET COUNT 114 K/MM3 (134-434); RBC 3.73 M/mm3 (4.00-5.60); WHITE BLOOD COUNT 13.5 K/mm3 (4.0-10.0)
[2019-07-23 07:03] LABS: BILIRUBIN,TOTAL 0.3 mg/dL (0.2-1); BLOOD UREA NITROGEN 30.4 mg/dL (7-18); CALCIUM 8.5 mg/dL (8.5-10.1); CREATININE 1.2 mg/dL (0.55-1.3); POTASSIUM 4.2 mmol/L (3.5-5.1); TOT PROT 6.1 g/dl (6.4-8.2)
--- NOTE | 2019-07-23 08:30 | PN ---
Teaching Attending Note Name of Resident: Nayan Roth ATTENDING PHYSICIAN STATEMENT I saw and evaluated the patient. I reviewed the resident's note and discussed the case with the resident. I agree with the resident's findings and plan as documented. SUBJECTIVE: Patient feels less SOB. He has no new complaints. OBJECTIVE: Vital Signs Period Temp Pulse Resp BP Sys/Cabrera Pulse Ox Last 24 Hr 97.4 F-98.1 F 43-49 20-22 119-149/54-83 96-100 HEART: S1S2, bradycardic LUNGS: Crackles at both bases ABDOMEN: Soft, non-tender, non-distended, normal BS EXTREMITIES: No edema Laboratory Results - last 24 hr 07/21/19 07/22/19 07/23/19 12:31 05:50 05:20 WBC 16.4 H 13.5 H RBC 3.71 L 3.73 L Hgb 12.1 12.5 Hct 36.6 36.9 MCV 98.7 H 98.9 H MCH 32.8 33.6 MCHC 33.2 34.0 RDW 12.9 13.0 Plt Count 109 L 114 L MPV 10.3 10.5 Absolute Neuts (auto) 13.4 H 10.5 H Neutrophils % 81.9 78.1 Lymphocytes % 12.8 D 17.1 D Monocytes % 4.5 4.3 Eosinophils % 0.4 D 0.3 Basophils % 0.4 0.2 Nucleated RBC % 0 0 Sodium Potassium Chloride Carbon Dioxide Anion Gap BUN Creatinine Est GFR (CKD-EPI)AfAm Est GFR (CKD-EPI)NonAf Random Glucose Calcium Total Bilirubin AST ALT Alkaline Phosphatase Total Protein Albumin Influenza A (Rapid) Negative Influenza B (Rapid) Negative 07/23/19 05:20 WBC RBC Hgb Hct MCV MCH MCHC RDW Plt Count MPV Absolute Neuts (auto) Neutrophils % Lymphocytes % Monocytes % Eosinophils % Basophils % Nucleated RBC % Sodium 143 Potassium 4.2 Chloride 108 H Carbon Dioxide 29 Anion Gap 6 L BUN 30.4 H Creatinine 1.2 Est GFR (CKD-EPI)AfAm 69.60 Est GFR (CKD-EPI)NonAf 60.05 Random Glucose 96 Calcium 8.5 Total Bilirubin 0.3 AST 24 ALT 40 Alkaline Phosphatase 74 Total Protein 6.1 L Albumin 3.0 L Influenza A (Rapid) Influenza B (Rapid) Current Medications Generic Name Dose Route Start Last Admin Trade Name Freq PRN Reason Stop Dose Admin Acetaminophen 1,000 mg 07/21/19 13:03 Ofirmev Injection - IVPB Q6H PRN FEVER Albuterol/Ipratropium 1 amp 07/21/19 13:03 07/22/19 20:35 Duoneb - NEB 1 amp Q4H PRN Administration SHORTNESS OF BREATH Aspirin 81 mg 07/22/19 10:00 07/22/19 09:17 Asa - PO 81 mg DAILY [facility] Administration Famotidine 10 mg 07/22/19 22:00 07/22/19 21:26 Acid Global President PO 10 mg BID [facility] Administration Ceftriaxone Sodium 2 gm/ 100 mls @ 100 mls/hr 07/21/19 16:30 07/22/19 09:17 Dextrose IVPB 100 mls/hr DAILY [facility] Administration Protocol Azithromycin 500 mg in 250 mls @ 250 mls/hr 07/21/19 20:45 07/22/19 20:52 Zithromax 500mg Ivpb (Pre-Docked) IVPB 250 mls/hr Q24H [facility] Administration Lisinopril 10 mg 07/22/19 14:45 07/22/19 15:07 Prinivil PO 10 mg DAILY [facility] Administration Metoclopramide HCl 10 mg 07/23/19 07:00 07/23/19 06:18 Reglan - PO 10 mg TIDAC [facility] Administration Tamsulosin HCl 0.4 mg 07/22/19 08:30 07/22/19 09:17 Flomax - PO 0.4 mg 0830 [facility] Administration ASSESSMENT AND PLAN: This is a 74 year old man with a history of HTN, hyperlipidemia, GERD, BPH who presented to the ED with right flank pain after recent ureteral stent placement. 1. Severe sepsis (leukocytosis, tachycardia, tachypnea, lactic acid 3.6) secondary to pneumonia - Afebrile; lactic acidosis, tachycardia, tachypnea resolved; leukocytosis improving - Blood cultures negative after 72 hours - Urine Legionella, Pneumociccus Ag negative - Continue ceftriaxone, azithromycin 2. Acute kidney injury - Resolved 3. Thrombocytopenia - Improving 4. HTN - Continue lisinopril 5. Hyperlipidemia 6. BPH - Continue Flomax 7. GERD - Continue Pepcid
[2019-07-23] MEDS ORDERED: DEXTROSE 5%-WATER 100 ML IVPB ONE (09:06)
[2019-07-23] MEDS: TAMSULOSIN HCL 0.4 MG CAP PO SCH (09:36)
[2019-07-23] MEDS: LISINOPRIL 10 MG TABLET (FP) PO SCH (09:36)
[2019-07-23] MEDS: FAMOTIDINE 10 MG TABLET PO SCH ×2 (09:37→21:45)
[2019-07-23] MEDS: ASPIRIN 81 MG CHEWABLE TABLETS PO SCH (09:37)
--- NOTE | 2019-07-23 11:00 | EKG ---
Test Reason : Blood Pressure : / mmHG Vent. Rate : 111 BPM Atrial Rate : 111 BPM P-R Int : 136 ms QRS Dur : 092 ms QT Int : 312 ms P-R-T Axes : 055 000 046 degrees QTc Int : 424 ms SINUS TACHYCARDIA POSSIBLE LEFT ATRIAL ENLARGEMENT BORDERLINE ECG WHEN COMPARED WITH ECG OF 08-JUN-2002 07:48, VENT. RATE HAS INCREASED BY 71 BPM Confirmed by HIMA MCCLELLAND MD ([id number]) on 07/23/2019 11:00:39 AM Referred By: Confirmed By:HIMA MCCLELLAND MD
[2019-07-23] MEDS: CEFTRIAXONE 2 GM in DEXTROSE 5%-WATER 100 ML IVPB SCH (11:20)
[2019-07-23] MEDS: ALBUTEROL SO4 2.5/IPRATROPIUM 0.5 INH SOL 3 ML VIAL.NEB. NEB PRN ×2 (11:49→21:20)
--- NOTE | 2019-07-23 12:06 | PN ---
Progress Note (short form) - Note Progress Note: HPI: no events overnight. Pt has persistent watery diarrhea without any blood or mucus. Otherwise no other complaints and breathing has improved compared to initial day. Denies fevers/chills, CP, palpitations, abdominal pain. Vital Signs Temperature 97.6 F 07/23/19 08:41 Pulse Rate 46 L 07/23/19 08:41 Respiratory Rate 20 07/23/19 08:41 Blood Pressure 116/69 07/23/19 08:41 O2 Sat by Pulse Oximetry (%) 96 07/23/19 08:41 PE: GENERAL: Awake, alert, and fully oriented, in no acute distress. HEENT: NC/AT, FERN, sclera anicteric, MMM NECK: No JVD LUNGS: Breath sounds equal, clear to auscultation bilaterally. No wheezes, and no crackles. No accessory muscle use. HEART: RRR, normal S1 and S2 with systolic ejection murmur 2/6 RUSB ABDOMEN: Soft, nondistendend, nontender, normoactive bS, no guarding, no hepatomegaly. MUSCULOSKELETAL: No CVA tenderness on exam EXTREMITIES: 2+ pulses, warm, well-perfused. No calf tenderness. No peripheral edema. PSYCHIATRIC: Cooperative. Good eye contact. Appropriate mood and affect. SKIN: Warm, dry, no rashes or lesions noted CBC, BMP 07/23/19 05:20 07/23/19 05:20 Microbiology 07/20/19 14:30 Blood - Peripheral Venous Blood Culture - Preliminary NO GROWTH OBTAINED AFTER 72 HOURS, INCUBATION TO CONTINUE FOR 2 DAYS. 07/20/19 14:30 Blood - Peripheral Venous Blood Culture - Preliminary NO GROWTH OBTAINED AFTER 72 HOURS, INCUBATION TO CONTINUE FOR 2 DAYS. 07/22/19 15:23 Stool Clostridioides difficile Antigen - Final 07/22/19 15:23 Stool Clostridioides difficile Toxin Assay - Final 07/20/19 18:45 Sputum - Expectorated Gram Stain - Final 07/20/19 18:45 Sputum - Expectorated Sputum Culture - Final NORMAL RESPIRATORY MARTA 07/21/19 17:57 Urine For Antigen Detection Legionella Antigen - Final 07/21/19 17:57 Urine For Antigen Detection Streptococcus pneumoniae Antigen (M - Final 07/20/19 14:30 Urine - Urine Clean Catch Urine Culture - Final NO GROWTH OBTAINED Active Medications Acetaminophen (Ofirmev Injection -) 1,000 mg IVPB Q6H PRN PRN Reason: FEVER Albuterol/Ipratropium (Duoneb -) 1 amp NEB Q4H PRN PRN Reason: SHORTNESS OF BREATH Last Admin: 07/23/19 11:49 Dose: 1 amp Aspirin (Asa -) 81 mg PO DAILY [facility] Last Admin: 07/23/19 09:37 Dose: 81 mg Famotidine (Acid Advocacy Director) 10 mg PO BID [facility] Last Admin: 07/23/19 09:37 Dose: 10 mg Ceftriaxone Sodium 2 gm/ (Dextrose) 100 mls @ 100 mls/hr IVPB DAILY [facility]; Protocol Last Admin: 07/23/19 11:20 Dose: 100 mls/hr Azithromycin (Zithromax 500mg Ivpb (Pre-Docked)) 500 mg in 250 mls @ 250 mls/ hr IVPB Q24H [facility] Last Admin: 07/22/19 20:52 Dose: 250 mls/hr Lisinopril (Prinivil) 10 mg PO DAILY [facility] Last Admin: 07/23/19 09:36 Dose: 10 mg Metoclopramide HCl (Reglan -) 10 mg PO TIDAC [facility] Last Admin: 07/23/19 11:20 Dose: 10 mg Tamsulosin HCl (Flomax -) 0.4 mg PO 0830 [facility] Last Admin: 07/23/19 09:36 Dose: 0.4 mg ASSESSMENT/PLAN: Severe sepsis 2/2 to complicated UTI and ? lung infiltrate Diarrhea 2/2 to antibiotic use Lactic Acidosis (resolved) Leukocytosis with bandemia Macrocytosis Acute kidney insufficiency Hx of HTN Hx of HLD --Continue with Zithromax and Rocephin --ID consulted appreciated --Pt tolerating PO and euvolemic with controlled sepsis: PO or bolus IVF as needed --Lactic acidosis resolved --Blood culture and urine as above --C. Diff culture noted negative --Can use Loperamide for symptoms --Continue medications as below --ASA 81mg qdaily --Lisinopril 10mg qdaily --Reglan 10mg TID AC --Flomax 0.4mg qdaily PO --Imaging reviewed --Awaiting echocardiogram report due to murmur FEN: Fluids: PO encouraged; bolus PRN Electrolyte abnormalities: None Nutrition: Cardiac PPX: DVT - Heparin TID GI - Not indicated Dispo: M/S monitoring; anticipated d/c within 24-48 hrs Case discussed with Dr. Cheng Roth, Do - IM PGY-3
--- NOTE | 2019-07-23 12:24 | PN ---
Progress Note, Physician History of Present Illness: PULMONARY ALERT,SITTING UP IN BED FEELING BETTER,LESS SOB - Current Medication List Current Medications: Active Medications Acetaminophen (Ofirmev Injection -) 1,000 mg IVPB Q6H PRN PRN Reason: FEVER Albuterol/Ipratropium (Duoneb -) 1 amp NEB Q4H PRN PRN Reason: SHORTNESS OF BREATH Last Admin: 07/23/19 11:49 Dose: 1 amp Aspirin (Asa -) 81 mg PO DAILY [facility] Last Admin: 07/23/19 09:37 Dose: 81 mg Famotidine (Acid Radio Message Router) 10 mg PO BID [facility] Last Admin: 07/23/19 09:37 Dose: 10 mg Ceftriaxone Sodium 2 gm/ (Dextrose) 100 mls @ 100 mls/hr IVPB DAILY [facility]; Protocol Last Admin: 07/23/19 11:20 Dose: 100 mls/hr Azithromycin (Zithromax 500mg Ivpb (Pre-Docked)) 500 mg in 250 mls @ 250 mls/ hr IVPB Q24H [facility] Last Admin: 07/22/19 20:52 Dose: 250 mls/hr Lisinopril (Prinivil) 10 mg PO DAILY [facility] Last Admin: 07/23/19 09:36 Dose: 10 mg Metoclopramide HCl (Reglan -) 10 mg PO TIDAC [facility] Last Admin: 07/23/19 11:20 Dose: 10 mg Tamsulosin HCl (Flomax -) 0.4 mg PO 0830 [facility] Last Admin: 07/23/19 09:36 Dose: 0.4 mg - Objective Vital Signs: Vital Signs Temperature 97.6 F 07/23/19 08:41 Pulse Rate 46 L 07/23/19 08:41 Respiratory Rate 20 07/23/19 08:41 Blood Pressure 116/69 07/23/19 08:41 O2 Sat by Pulse Oximetry (%) 96 07/23/19 08:41 Constitutional: Yes: Well Nourished, Calm Eyes: Yes: WNL HENT: Yes: WNL Neck: Yes: WNL Cardiovascular: Yes: Regular Rate and Rhythm, S1, S2 Respiratory: Yes: Rales (SCATTERED CORNELL CRACKLES) Gastrointestinal: Yes: Normal Bowel Sounds, Soft Edema: No Labs: CBC, BMP 07/23/19 05:20 07/23/19 05:20 INR, PTT INR 1.17 (0.83-1.09) H 07/20/19 19:00 - ....Imaging Cat Scan: Report Reviewed, Image Reviewed Assessment/Plan IMP ILD SEPSIS PNEUMONIA RENAL COLIC HEMATURIA HTN HLD HYDRONEPHROSIS PLAN ABX PER ID O2 NEEDED INHALED BRONCHODILATORS PFTS OUTPATIENT PER Problem List - Problems (1) Sepsis Code(s): A41.9 - SEPSIS, UNSPECIFIED ORGANISM (2) Hematuria Code(s): R31.9 - HEMATURIA, UNSPECIFIED (3) Renal colic Code(s): N23 - UNSPECIFIED RENAL COLIC (4) ILD (interstitial lung disease) Code(s): J84.9 - INTERSTITIAL PULMONARY DISEASE, UNSPECIFIED (5) Pneumonia Code(s): J18.9 - PNEUMONIA, UNSPECIFIED ORGANISM IMP
--- NOTE | 2019-07-23 13:41 | ECHO ---
Name: TORI LEUNG Exam:Adult Echocardiogram Study Date: 07/23/2019 10:06 AM Age: 74 yrs Height: 66 in Weight: 184 lb BSA: 1.9 m2 MMode/2D Measurements & Calculations IVSd: 1.0 cm Ao root diam: 3.6 cm LVIDd: 6.1 cm LA dimension: 4.7 cm LVIDs: 3.4 cm ACS: 0.86 cm LVPWd: 0.96 cm IVSs: 1.7 cm LVPWs: 1.2 cm EDV(Teich): 185.8 ml ESV(Teich): 46.5 ml LVOT diam: 2.0 cm Doppler Measurements & Calculations MV E max baldemar: 96.5 cm/sec Ao V2 max: 327.2 cm/sec MV A max baldemar: 60.7 cm/sec Ao max P.9 mmHg MV E/A: 1.6 Ao V2 mean: 226.2 cm/sec Ao mean P.3 mmHg Ao V2 VTI: 80.4 cm DAVID(I,D): 1.0 cm2 DAVID(V,D): 0.98 cm2 LV V1 max P.9 mmHg SV(LVOT): 80.5 ml LV V1 mean P.3 mmHg LV V1 max: 98.9 cm/sec LV V1 mean: 69.7 cm/sec LV V1 VTI: 24.8 cm TR max baldemar: 259.5 cm/sec Med Peak E' Baldemar: 6.3 cm/sec TR max P.9 mmHg Med E/e': 15.4 Lat Peak E' Baldemar: 6.1 cm/sec Lat E/e': 15.7 Procedure A complete two-dimensional transthoracic echocardiogram was performed (2D, M-mode, Doppler and color flow Doppler). Left Ventricle The left ventricle is normal in size. Left ventricular systolic function is normal. Ejection Fraction = 65- 70%. LV diastology suggests impaired relaxation (pseudonormal) with elevated filling pressure. No reg ional wall motion abnormalities noted. Right Ventricle The right ventricle is normal size. The right ventricular systolic function is normal. Atria The left atrium is moderately dilated. Right atrial size is normal. Mitral Valve There is mild mitral annular calcification. There is mild mitral regurgitation. Tricuspid Valve The tricuspid valve is normal in structure and function. There is mild tricuspid regurgitation. Pulmo nary artery systolic pressure is at least 33 mmHg if RA pressure is assumed 3 mmHg. Aortic Valve There is mild to moderate aortic valve thickening. Moderate to severe valvular aortic stenosis. The c alculated aortic valve area using the continuity equation is 1.0 cm2. Aortic mean pressure gradient= 24 mmHg. D I (dimensionless idex) is 0.26. Mild aortic regurgitation. Pulmonic Valve The pulmonic valve is not well visualized. Mild pulmonic valvular regurgitation. Great Vessels The aortic root is normal size. Pericardium/Pleura There is no pericardial effusion. Interpretation Summary The left ventricle is normal in size. Left ventricular systolic function is normal. No regional wall motion abnormalities noted. Ejection Fraction = 65-70%. LV diastology suggests impaired relaxation (pseudonormal) with elevated filling pressure The right ventricular systolic function is normal. The left atrium is moderately dilated. Right atrial size is normal. There is mild mitral annular calcification. There is mild mitral regurgitation. There is mild tricuspid regurgitation. Pulmonary artery systolic pressure is at least 33 mmHg if RA pressure is assumed 3 mmHg There is mild to moderate aortic valve thickening. Moderate to severe valvular aortic stenosis. The calculated aortic valve area using the continuity equation is 1.0 cm2. Aortic mean pressure gradient= 24 mmHg DI (dimensionless idex) is 0.26 Mild aortic regurgitation. Mild pulmonic valvular regurgitation. There is no pericardial effusion. Chris Hong MD 07/23/2019 01:40 PM
--- NOTE | 2019-07-23 15:14 | PN ---
Progress Note (short form) - Note Progress Note: clinically improving no hematuria Vital Signs Period Temp Pulse Resp BP Sys/Cabrera Pulse Ox Last 24 Hr 97.4 F-98.1 F 43-47 20-20 116-149/54-83 96-96 cor-rrr lungs bibasilar crackles abd soft,nt ext no edema CBC, BMP 07/23/19 05:20 07/23/19 05:20 Microbiology 07/20/19 14:30 Blood - Peripheral Venous Blood Culture - Preliminary NO GROWTH OBTAINED AFTER 72 HOURS, INCUBATION TO CONTINUE FOR 2 DAYS. 07/20/19 14:30 Blood - Peripheral Venous Blood Culture - Preliminary NO GROWTH OBTAINED AFTER 72 HOURS, INCUBATION TO CONTINUE FOR 2 DAYS. 07/22/19 15:23 Stool Clostridioides difficile Antigen - Final 07/22/19 15:23 Stool Clostridioides difficile Toxin Assay - Final 07/20/19 18:45 Sputum - Expectorated Gram Stain - Final 07/20/19 18:45 Sputum - Expectorated Sputum Culture - Final NORMAL RESPIRATORY MARTA 07/21/19 17:57 Urine For Antigen Detection Legionella Antigen - Final 07/21/19 17:57 Urine For Antigen Detection Streptococcus pneumoniae Antigen (M - Final 07/20/19 14:30 Urine - Urine Clean Catch Urine Culture - Final NO GROWTH OBTAINED a/p R/o pneumonia history of ILD echo with aortic stenosis continue rocephin/zith for CAP s/p recent cystoscopy with stent placement Problem List - Problems (1) Pneumonia Code(s): J18.9 - PNEUMONIA, UNSPECIFIED ORGANISM (2) UTI (urinary tract infection) Code(s): N39.0 - URINARY TRACT INFECTION, SITE NOT SPECIFIED (3) Allergic reaction caused by a drug Code(s): T78.40XA - ALLERGY, UNSPECIFIED, INITIAL ENCOUNTER (4) Cardiac murmur Code(s): R01.1 - CARDIAC MURMUR, UNSPECIFIED
--- NOTE | 2019-07-23 16:51 | HP ---
Admitting History and Physical - Admission Chief Complaint: i am back to taking care pt was away and ok with with alfonzo stevenson. 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 No: Hemodialysis Heme/Onc: No: Anemia Psych: No: Addictions Musculoskeletal: No: Chronic low back pain - Past Surgical History Past Surgical History: Yes: Appendectomy Additional Past Surgical History: matt knee sx liver bx ? fatty rt hydro w stent in ? stone - Smoking History Smoking history: Former smoker Have you smoked in the past 12 months: No Aproximately how many cigarettes per day: 0 If you are a former smoker, when did you quit?: 1 year ago - Alcohol/Substance Use Hx Alcohol Use: Yes (SOCIAL-STOPPED 5 WEEKS AGO) History of Substance Use: reports: None - Social History Usual Living Arrangement: Yes: Alone ADL: Independent History of Recent Travel: No Home Medications - Allergies Allergies/Adverse Reactions: Allergies Allergy/AdvReac Type Severity Reaction Status Date / Time ciprofloxacin [From Cipro] Allergy Swelling Verified 07/20/19 12:28 tetracycline [Tetracycline] Allergy Rash Verified 07/20/19 12:28 potassium clavulanate AdvReac Verified 07/20/19 12:28 [From Augmentin] - Home Medications Home Medications: Ambulatory Orders Lisinopril [Zestril] 40 mg PO DAILY 05/08/14 Omeprazole [Prilosec (RX)] 40 mg PO DAILY 05/08/14 Aspirin [ASA -] 1 tab PO DAILY 07/09/19 Tamsulosin HCl [Flomax -] 1 cap PO DAILY 07/09/19 Fenofibrate 160 mg PO DAILY 07/20/19 Nitrofurantoin Monohyd/M-Cryst [Macrobid -] 100 mg PO BID 07/20/19 Oxycodone HCl/Acetaminophen [Percocet 5-325 mg Tablet] 1 tab PO Q6H PRN Family Medical History Family History: Unremarkable Review of Systems - Review of Systems Constitutional: reports: Other (less diarrea) HENT: reports: No Symptoms, Ocular Prosthesis Cardiovascular: reports: No Symptoms Respiratory: reports: SOB on Exertion Gastrointestinal: reports: Diarrhea, Vomiting Blood Genitourinary: reports: No Symptoms Breasts: reports: No Symptoms Reported Musculoskeletal: reports: No Symptoms Integumentary: reports: No Symptoms Neurological: reports: No Symptoms Endocrine: reports: No Symptoms Hematology/Lymphatic: reports: No Symptoms Psychiatric: reports: No Symptoms Physical Examination Vital Signs: Vital Signs Temperature 98 F 07/23/19 14:05 Pulse Rate 60 07/23/19 14:05 Respiratory Rate 18 07/23/19 14:05 Blood Pressure 120/60 07/23/19 14:05 O2 Sat by Pulse Oximetry (%) 96 07/23/19 08:41 Constitutional: Yes: Well Nourished Eyes: Yes: WNL HENT: Yes: WNL Neck: Yes: WNL Cardiovascular: Yes: WNL Respiratory: Yes: WNL Gastrointestinal: Yes: WNL ...Rectal Exam: Yes: Deferred Renal/: Yes: WNL Breast(s): Yes: WNL Musculoskeletal: Yes: WNL, Muscle Weakness Edema: No Peripheral Pulses WNL: Yes Integumentary: Yes: WNL Neurological: Yes: WNL ...Motor Strength: WNL Psychiatric: Yes: WNL Labs: CBC, BMP 07/23/19 05:20 07/23/19 05:20 Assessment/Plan i will be careing for pt atxbs? 48 hrs more?? cont all tx as is stool c diff done inhaklers to be given
--- NOTE | 2019-07-23 20:20 | PN ---
Progress Note (short form) - Note Progress Note: 74-year-old gentleman was admitted with fever cough and dyspneafollowing an extraction of her urethral lithiasis and stenting. Clinically patient was in congestive heart failure and pneumonia was being excluded. he was seen in the cardiology department as he was waiting to undergo an echocardiogram. He denies having significant dyspnea, no chest pain or discomfort was reported no history of palpitations, lightheadedness dizziness presyncope or syncope. Still has mostly nonproductive cough. Active Medications Generic Name Dose Route Start Last Admin Trade Name Freq PRN Reason Stop Dose Admin Acetaminophen 1,000 mg 07/21/19 13:03 Ofirmev Injection - IVPB Q6H PRN FEVER Albuterol/Ipratropium 1 amp 07/21/19 13:03 07/23/19 11:49 Duoneb - NEB 1 amp Q4H PRN Administration SHORTNESS OF BREATH Aspirin 81 mg 07/22/19 10:00 07/23/19 09:37 Asa - PO 81 mg DAILY BRISA Administration Budesonide/Formoterol Fumarate 2 puff 07/23/19 22:00 Symbicort 80/4.5mcg - IH BID BRISA Famotidine 10 mg 07/22/19 22:00 07/23/19 09:37 Acid Soft Top Installer PO 10 mg BID BRISA Administration Heparin Sodium (Porcine) 5,000 unit 07/23/19 22:00 Heparin - SQ TID BRISA Ceftriaxone Sodium 2 gm/ 100 mls @ 100 mls/hr 07/21/19 16:30 07/23/19 11:20 Dextrose IVPB 100 mls/hr DAILY BRISA Administration Protocol Azithromycin 500 mg in 250 mls @ 250 mls/hr 07/21/19 20:45 07/22/19 20:52 Zithromax 500mg Ivpb (Pre-Docked) IVPB 250 mls/hr Q24H BRISA Administration Lisinopril 10 mg 07/22/19 14:45 07/23/19 09:36 Prinivil PO 10 mg DAILY BRISA Administration Metoclopramide HCl 10 mg 07/23/19 07:00 07/23/19 16:51 Reglan - PO 10 mg TIDAC BRISA Administration Tamsulosin HCl 0.4 mg 07/22/19 08:30 07/23/19 09:36 Flomax - PO 0.4 mg 0830 BRISA Administration O: 74-year-old male was in no acute distress, no pallor, cyanosis, clubbing or jaundice and is afebrile. Last Vital Signs Temp Pulse Resp BP Pulse Ox 98.2 F 51 L 20 134/69 96 07/23/19 17:38 07/23/19 17:38 07/23/19 17:38 07/23/19 17:38 07/23/19 08:41 NECK: Supple, no jugular venous distention, carotids were 2+, upstrokes were normal, faint bilateral radiation of murmur, no thyromegaly. HEART: PMI was in the fifth intercostal space, no heaves or thrills, S1 was normal S2 A2 was reduced, ejection systolic murmur grade 2 3/6 heard at the second right intercostal space, along the left sternal border and apex ending in mid systole. No diastolic murmur or gallops were heard. LUNGS: Scattered bilateral crepitations. ABDOMEN: Soft, protuberant and nontender. No hepatosplenomegaly or palpable masses were appreciated. EXTREMITIES: No calf tenderness or dependent edema. Laboratory Results - last 24 hr 07/23/19 07/23/19 05:20 05:20 WBC 13.5 H RBC 3.73 L Hgb 12.5 Hct 36.9 MCV 98.9 H MCH 33.6 MCHC 34.0 RDW 13.0 Plt Count 114 L MPV 10.5 Absolute Neuts (auto) 10.5 H Neutrophils % 78.1 Lymphocytes % 17.1 D Monocytes % 4.3 Eosinophils % 0.3 Basophils % 0.2 Nucleated RBC % 0 Sodium 143 Potassium 4.2 Chloride 108 H Carbon Dioxide 29 Anion Gap 6 L BUN 30.4 H Creatinine 1.2 Est GFR (CKD-EPI)AfAm 69.60 Est GFR (CKD-EPI)NonAf 60.05 Random Glucose 96 Calcium 8.5 Total Bilirubin 0.3 AST 24 ALT 40 Alkaline Phosphatase 74 Total Protein 6.1 L Albumin 3.0 L Impression: 1. Congestive heart failure, presently resolving. 2. Auscultative findingcompatible with aortic stenosis probably moderate to severe. 3. Febrile state, etiology: a). In view of recent instrumentation possibility of culture negative aortic valvular endocarditis needs exclusion. b). Pneumonia needs exclusion. c). Originating from the urinary tract. 4. Chronic obstructive pulmonary disease/interstitial lung disease.. 5. Tobacco abuse. 6. History of ethanol abuse. Recommendations: 1. Concur with current line of workup. 2. Echocardiogram is pending. 3. Follow-up ECG. 4. Consider resumption of diuretics. 5. follow-up chest CT scan to see if there is any resolution of the previously mentioned findings.
[2019-07-23] MEDS: AZITHROMYCIN IVPB 500 MG/250 ML BAG IVPB SCH (21:45)
[2019-07-23] MEDS: HEPARIN NA (PORCINE) 5,000 UNITS/ML 1ML VIAL SQ SCH (21:45)
[2019-07-23] MEDS: BUDESONIDE/FORMETEROL FUMARATE 80/4.5 mcg INHALER IH SCH (21:56)
[2019-07-24] MEDS: HEPARIN NA (PORCINE) 5,000 UNITS/ML 1ML VIAL SQ SCH ×3 (06:16→22:33)
[2019-07-24] MEDS: METOCLOPRAMIDE HCL 10 MG TABLET (FP) PO SCH ×3 (06:16→17:05)
[2019-07-24 06:42] LABS: BASO % 0.9 % (0-2.0); EOS % 7.3 % (0-4.5); HEMATOCRIT 40.1 % (35.4-49); HEMOGLOBIN 13.8 GM/dL (11.7-16.9); LYMPH % 29.4 % (8-40); MCH 33.7 pg (25.7-33.7); MCHC 34.4 g/dl (32.0-35.9); MEAN CELL VOLUME 98.2 fl (80-96); MEAN PLT VOLUME 9.9 fl (7.5-11.1); MONO % 8.4 % (3.8-10.2); PLATELET COUNT 123 K/MM3 (134-434); RBC 4.08 M/mm3 (4.00-5.60); RDW 13.2 % (11.9-15.9); WHITE BLOOD COUNT 7.9 K/mm3 (4.0-10.0)
[2019-07-24 07:23] LABS: BLOOD UREA NITROGEN 25.2 mg/dL (7-18); CALCIUM 8.4 mg/dL (8.5-10.1); CREATININE 1.2 mg/dL (0.55-1.3); MAGNESIUM 2.2 mg/dL (1.8-2.4); POTASSIUM 4.4 mmol/L (3.5-5.1)
[2019-07-24] MEDS ORDERED: DEXTROSE 5%-WATER 100 ML IVPB ONE (08:52)
[2019-07-24] MEDS: ASPIRIN 81 MG CHEWABLE TABLETS PO SCH (09:04)
[2019-07-24] MEDS: CEFTRIAXONE 2 GM in DEXTROSE 5%-WATER 100 ML IVPB SCH (09:04)
[2019-07-24] MEDS: FAMOTIDINE 10 MG TABLET PO SCH ×2 (09:04→22:33)
[2019-07-24] MEDS: TAMSULOSIN HCL 0.4 MG CAP PO SCH (09:04)
[2019-07-24] MEDS: LISINOPRIL 10 MG TABLET (FP) PO SCH (09:04)
[2019-07-24] MEDS: BUDESONIDE/FORMETEROL FUMARATE 80/4.5 mcg INHALER IH SCH ×2 (09:05→22:50)
[2019-07-24] MEDS: ALBUTEROL SO4 2.5/IPRATROPIUM 0.5 INH SOL 3 ML VIAL.NEB. NEB PRN ×2 (09:05→20:45)
--- NOTE | 2019-07-24 10:26 | PN ---
Progress Note (short form) - Note Progress Note: 74-year-old gentleman was admitted with fever cough and dyspnea following an extraction of her urethral lithiasis and stenting. Congestive heart failure, ILD/COPD, aortic stenosis. Echo reported to have moderate to severe stenosis. He denies having significant dyspnea, no chest pain or discomfort, no history of palpitations, lightheadedness dizziness presyncope or syncope.cough persists. Active Medications Acetaminophen (Ofirmev Injection -) 1,000 mg IVPB Q6H PRN PRN Reason: FEVER Albuterol/Ipratropium (Duoneb -) 1 amp NEB Q4H PRN PRN Reason: SHORTNESS OF BREATH Last Admin: 07/24/19 09:05 Dose: 1 amp Aspirin (Asa -) 81 mg PO DAILY [facility] Last Admin: 07/24/19 09:04 Dose: 81 mg Budesonide/Formoterol Fumarate (Symbicort 80/4.5mcg -) 2 puff IH BID [facility] Last Admin: 07/24/19 09:05 Dose: 2 puff Famotidine (Acid Dial Maker) 10 mg PO BID [facility] Last Admin: 07/24/19 09:04 Dose: 10 mg Heparin Sodium (Porcine) (Heparin -) 5,000 unit SQ TID [facility] Last Admin: 07/24/19 06:16 Dose: 5,000 unit Ceftriaxone Sodium 2 gm/ (Dextrose) 100 mls @ 100 mls/hr IVPB DAILY [facility]; Protocol Last Admin: 07/24/19 09:04 Dose: 100 mls/hr Azithromycin (Zithromax 500mg Ivpb (Pre-Docked)) 500 mg in 250 mls @ 250 mls/ hr IVPB Q24H [facility] Last Admin: 07/23/19 21:45 Dose: 250 mls/hr Lisinopril (Prinivil) 10 mg PO DAILY [facility] Last Admin: 07/24/19 09:04 Dose: 10 mg Metoclopramide HCl (Reglan -) 10 mg PO TIDAC [facility] Last Admin: 07/24/19 06:16 Dose: 10 mg Tamsulosin HCl (Flomax -) 0.4 mg PO 0830 [facility] Last Admin: 07/24/19 09:04 Dose: 0.4 mg Last Vital Signs Temp Pulse Resp BP Pulse Ox 97.9 F 54 L 24 H 138/83 95 07/24/19 09:00 11/05/19 09:00 07/24/19 09:00 07/24/19 09:00 07/24/19 09:00 NECK: Supple, no jugular venous distention, carotids were 2+, upstrokes were normal, faint bilateral radiation of murmur, no thyromegaly. HEART: PMI was in the fifth intercostal space, no heaves or thrills, S1 was normal S2 A2 was reduced, ejection systolic murmur grade 2 3/6 heard at the second right intercostal space, along the left sternal border and apex ending in mid systole. No diastolic murmur or gallops were heard. LUNGS: Scattered bilateral crepitations. ABDOMEN: Soft, protuberant and nontender. No hepatosplenomegaly or palpable masses were appreciated. EXTREMITIES: No calf tenderness or dependent edema. CBC, BMP 07/24/19 05:40 07/24/19 05:40 1. Congestive heart failure, presently resolving. 2. Auscultative findingcompatible with aortic stenosis probably moderate to severe. 3. Febrile state, etiology: a). In view of recent instrumentation possibility of culture negative aortic valvular endocarditis needs exclusion. b). Pneumonia needs exclusion. c). Originating from the urinary tract. 4. Chronic obstructive pulmonary disease/interstitial lung disease.. 5. Tobacco abuse. 6. History of ethanol abuse. Recommendations: 1. 3. Follow-up ECG. 4. Consider resumption of diuretics. 5. follow-up chest CT scan to see if there is any resolution of the previously mentioned findings.
--- NOTE | 2019-07-24 10:40 | PN ---
Progress Note, Physician History of Present Illness: pulmonary alert,still dyspneic with exertion,-cp - Current Medication List Current Medications: Active Medications Acetaminophen (Ofirmev Injection -) 1,000 mg IVPB Q6H PRN PRN Reason: FEVER Albuterol/Ipratropium (Duoneb -) 1 amp NEB Q4H PRN PRN Reason: SHORTNESS OF BREATH Last Admin: 07/24/19 09:05 Dose: 1 amp Aspirin (Asa -) 81 mg PO DAILY [facility] Last Admin: 07/24/19 09:04 Dose: 81 mg Budesonide/Formoterol Fumarate (Symbicort 80/4.5mcg -) 2 puff IH BID [facility] Last Admin: 07/24/19 09:05 Dose: 2 puff Famotidine (Acid Log Cutter) 10 mg PO BID [facility] Last Admin: 07/24/19 09:04 Dose: 10 mg Heparin Sodium (Porcine) (Heparin -) 5,000 unit SQ TID [facility] Last Admin: 07/24/19 06:16 Dose: 5,000 unit Ceftriaxone Sodium 2 gm/ (Dextrose) 100 mls @ 100 mls/hr IVPB DAILY [facility]; Protocol Last Admin: 07/24/19 09:04 Dose: 100 mls/hr Azithromycin (Zithromax 500mg Ivpb (Pre-Docked)) 500 mg in 250 mls @ 250 mls/ hr IVPB Q24H [facility] Last Admin: 07/23/19 21:45 Dose: 250 mls/hr Lisinopril (Prinivil) 10 mg PO DAILY [facility] Last Admin: 07/24/19 09:04 Dose: 10 mg Metoclopramide HCl (Reglan -) 10 mg PO TIDAC [facility] Last Admin: 07/24/19 06:16 Dose: 10 mg Tamsulosin HCl (Flomax -) 0.4 mg PO 0830 [facility] Last Admin: 07/24/19 09:04 Dose: 0.4 mg - Objective Vital Signs: Vital Signs Temperature 97.9 F 07/24/19 09:00 Pulse Rate 54 L 07/24/19 09:00 Respiratory Rate 24 H 07/24/19 09:00 Blood Pressure 138/83 07/24/19 09:00 O2 Sat by Pulse Oximetry (%) 95 07/24/19 09:00 Constitutional: Yes: Well Nourished, Calm Eyes: Yes: WNL HENT: Yes: WNL Neck: Yes: WNL Cardiovascular: Yes: Regular Rate and Rhythm, S1, S2 Respiratory: Yes: Rales (bilateral crackles) Gastrointestinal: Yes: Normal Bowel Sounds, Soft Extremities: Yes: WNL Edema: No Labs: CBC, BMP 07/24/19 05:40 07/24/19 05:40 INR, PTT INR 1.17 (0.83-1.09) H 07/20/19 19:00 Assessment/Plan IMP ILD SEPSIS PNEUMONIA RENAL COLIC HEMATURIA HTN HLD HYDRONEPHROSIS PLAN CONTINUE ABX PER ID O2 NEEDED INHALED BRONCHODILATORS PFTS OUTPATIENT CHEST X-RAY TODAY Problem List - Problems (1) Sepsis Code(s): A41.9 - SEPSIS, UNSPECIFIED ORGANISM (2) Hematuria Code(s): R31.9 - HEMATURIA, UNSPECIFIED (3) Renal colic Code(s): N23 - UNSPECIFIED RENAL COLIC (4) ILD (interstitial lung disease) Code(s): J84.9 - INTERSTITIAL PULMONARY DISEASE, UNSPECIFIED (5) Pneumonia Code(s): J18.9 - PNEUMONIA, UNSPECIFIED ORGANISM IMP
--- NOTE | 2019-07-24 11:19 | PN ---
Progress Note, Physician History of Present Illness: less sob oob ambulating diet ok nl bms - Current Medication List Current Medications: Active Medications Acetaminophen (Ofirmev Injection -) 1,000 mg IVPB Q6H PRN PRN Reason: FEVER Albuterol/Ipratropium (Duoneb -) 1 amp NEB Q4H PRN PRN Reason: SHORTNESS OF BREATH Last Admin: 07/24/19 09:05 Dose: 1 amp Aspirin (Asa -) 81 mg PO DAILY [facility] Last Admin: 07/24/19 09:04 Dose: 81 mg Budesonide/Formoterol Fumarate (Symbicort 80/4.5mcg -) 2 puff IH BID [facility] Last Admin: 07/24/19 09:05 Dose: 2 puff Famotidine (Acid Supervisor [employer]) 10 mg PO BID [facility] Last Admin: 07/24/19 09:04 Dose: 10 mg Heparin Sodium (Porcine) (Heparin -) 5,000 unit SQ TID [facility] Last Admin: 07/24/19 06:16 Dose: 5,000 unit Ceftriaxone Sodium 2 gm/ (Dextrose) 100 mls @ 100 mls/hr IVPB DAILY [facility]; Protocol Last Admin: 07/24/19 09:04 Dose: 100 mls/hr Azithromycin (Zithromax 500mg Ivpb (Pre-Docked)) 500 mg in 250 mls @ 250 mls/ hr IVPB Q24H [facility] Last Admin: 07/23/19 21:45 Dose: 250 mls/hr Lisinopril (Prinivil) 10 mg PO DAILY [facility] Last Admin: 07/24/19 09:04 Dose: 10 mg Metoclopramide HCl (Reglan -) 10 mg PO TIDAC [facility] Last Admin: 07/24/19 06:16 Dose: 10 mg Tamsulosin HCl (Flomax -) 0.4 mg PO 0830 [facility] Last Admin: 07/24/19 09:04 Dose: 0.4 mg - Objective Vital Signs: Vital Signs Temperature 97.9 F 07/24/19 09:00 Pulse Rate 54 L 07/24/19 09:00 Respiratory Rate 24 H 07/24/19 09:00 Blood Pressure 138/83 07/24/19 09:00 O2 Sat by Pulse Oximetry (%) 95 07/24/19 09:00 Constitutional: Yes: Mild Distress Eyes: Yes: WNL HENT: Yes: WNL, Tonsillar Exudate Cardiovascular: Yes: WNL Respiratory: Yes: Rales (exspotory wheezing?), Wheezes Gastrointestinal: Yes: WNL ...Rectal Exam: Yes: Deferred Genitourinary: Yes: WNL Breast(s): Yes: WNL Musculoskeletal: Yes: WNL Extremities: Yes: WNL Edema: No Peripheral Pulses WNL: Yes Integumentary: Yes: WNL Wound/Incision: Yes: Excoriated ...Motor Strength: WNL Psychiatric: Yes: WNL Labs: CBC, BMP 07/24/19 05:40 07/24/19 05:40 INR, PTT INR 1.17 (0.83-1.09) H 07/20/19 19:00 Assessment/Plan no diarrea ct chest today ekg today oob walking no diuretics yet? po atbx leave up to id for today!!prednisone po 40 daily will wean taper out pt awear of ? yeast like infecc?/? d/c in am??
--- NOTE | 2019-07-24 13:43 | EKG ---
Test Reason : Blood Pressure : / mmHG Vent. Rate : 056 BPM Atrial Rate : 056 BPM P-R Int : 152 ms QRS Dur : 102 ms QT Int : 412 ms P-R-T Axes : 035 007 026 degrees QTc Int : 397 ms SINUS BRADYCARDIA WITH SINUS ARRHYTHMIA OTHERWISE NORMAL ECG WHEN COMPARED WITH ECG OF 20-JUL-2019 12:22, VENT. RATE HAS DECREASED BY 55 BPM Confirmed by MD Octavio, Derek ([id number]) on 07/24/2019 1:42:56 PM Referred By: Angela LOPEZ Confirmed By:Derek Cunningham MD
--- NOTE | 2019-07-24 15:30 | PN ---
Progress Note (short form) - Note Progress Note: clinically improving no hematuria no difficulty voiding Vital Signs Period Temp Pulse Resp BP Sys/Cabrera Pulse Ox Last 24 Hr 97.8 F-98.2 F 45-61 18-24 138-163/70-87 95-100 cor-rrr lungs bibasilar crackles abd soft,nt ext no edema CBC, BMP 07/24/19 05:40 07/24/19 05:40 Microbiology 07/20/19 14:30 Blood - Peripheral Venous Blood Culture - Preliminary NO GROWTH OBTAINED AFTER 96 HOURS, INCUBATION TO CONTINUE FOR 1 DAYS. 07/20/19 14:30 Blood - Peripheral Venous Blood Culture - Preliminary NO GROWTH OBTAINED AFTER 96 HOURS, INCUBATION TO CONTINUE FOR 1 DAYS. 07/22/19 15:23 Stool Salmonella/Shigella Culture - Preliminary Yeast Like Organism 07/22/19 15:23 Stool Campylobacter Culture - Preliminary 07/22/19 15:23 Stool Yersinia Culture - Preliminary NO ENTERIC PATHOGENS, 24 HOURS, ON PRIMARY PLATES 07/22/19 15:23 Stool Vibrio Culture - Final NO GROWTH OF VIBRIO SPECIES OBTAINED 07/22/19 15:23 Stool Escherichia coli 0157 Culture - Final NO GROWTH OF E COLI 0157 OBTAINED 07/22/19 15:23 Stool Gram Stain - Final 07/22/19 15:23 Stool Clostridioides difficile Antigen - Final 07/22/19 15:23 Stool Clostridioides difficile Toxin Assay - Final 07/20/19 18:45 Sputum - Expectorated Gram Stain - Final 07/20/19 18:45 Sputum - Expectorated Sputum Culture - Final NORMAL RESPIRATORY MARTA 07/21/19 17:57 Urine For Antigen Detection Legionella Antigen - Final 07/21/19 17:57 Urine For Antigen Detection Streptococcus pneumoniae Antigen (M - Final 07/20/19 14:30 Urine - Urine Clean Catch Urine Culture - Final NO GROWTH OBTAINED a/p R/o pneumonia history of ILD echo with aortic stenosis continue rocephin/zith for CAP-day 35 zithromax, will d/c after todays dose, day #5 ceftriaxone, can switch to po ceftin for another 48 hours in am s/p recent cystoscopy with stent placement Problem List - Problems (1) Pneumonia Code(s): J18.9 - PNEUMONIA, UNSPECIFIED ORGANISM (2) UTI (urinary tract infection) Code(s): N39.0 - URINARY TRACT INFECTION, SITE NOT SPECIFIED (3) Allergic reaction caused by a drug Code(s): T78.40XA - ALLERGY, UNSPECIFIED, INITIAL ENCOUNTER (4) Cardiac murmur Code(s): R01.1 - CARDIAC MURMUR, UNSPECIFIED
[2019-07-24] MEDS: AZITHROMYCIN IVPB 500 MG/250 ML BAG IVPB SCH (22:41)
[2019-07-25] MEDS: HEPARIN NA (PORCINE) 5,000 UNITS/ML 1ML VIAL SQ SCH ×2 (06:37→14:58)
[2019-07-25] MEDS: METOCLOPRAMIDE HCL 10 MG TABLET (FP) PO SCH ×2 (06:37→12:13)
[2019-07-25 07:10] LABS: BASO % 0.5 % (0-2.0); EOS % 6.6 % (0-4.5); HEMATOCRIT 43.8 % (35.4-49); HEMOGLOBIN 15.3 GM/dL (11.7-16.9); LYMPH % 25.2 % (8-40); MCH 33.9 pg (25.7-33.7); MCHC 34.9 g/dl (32.0-35.9); MEAN PLT VOLUME 9.5 fl (7.5-11.1); MONO % 10.4 % (3.8-10.2); NEUT % 57.3 % (42.8-82.8); PLATELET COUNT 143 K/MM3 (134-434); RBC 4.51 M/mm3 (4.00-5.60); RDW 12.7 % (11.9-15.9); WHITE BLOOD COUNT 7.5 K/mm3 (4.0-10.0)
[2019-07-25 07:44] LABS: BLOOD UREA NITROGEN 22.4 mg/dL (7-18); CALCIUM 8.9 mg/dL (8.5-10.1); CREATININE 1.2 mg/dL (0.55-1.3); POTASSIUM 4.1 mmol/L (3.5-5.1)
[2019-07-25 08:40] VITALS: TEMP 98.7
[2019-07-25] MEDS ORDERED: DEXTROSE 5%-WATER 100 ML IVPB ONE (08:51)
[2019-07-25] MEDS: FAMOTIDINE 10 MG TABLET PO SCH (09:12)
[2019-07-25] MEDS: LISINOPRIL 10 MG TABLET (FP) PO SCH (09:12)
[2019-07-25] MEDS: TAMSULOSIN HCL 0.4 MG CAP PO SCH (09:12)
[2019-07-25] MEDS: ASPIRIN 81 MG CHEWABLE TABLETS PO SCH (09:12)
[2019-07-25] MEDS: BUDESONIDE/FORMETEROL FUMARATE 80/4.5 mcg INHALER IH SCH (09:13)
[2019-07-25] MEDS ORDERED: CEFTRIAXONE 2 GM in DEXTROSE 5%-WATER 100 ML IVPB SCH (10:00)
--- NOTE | 2019-07-25 11:02 | PN ---
Progress Note, Physician History of Present Illness: pulmonary alert,comfortable,-sob,cough,afebrile - Current Medication List Current Medications: Active Medications Albuterol/Ipratropium (Duoneb -) 1 amp NEB Q4H PRN PRN Reason: SHORTNESS OF BREATH Last Admin: 07/24/19 20:45 Dose: 1 amp Aspirin (Asa -) 81 mg PO DAILY [facility] Last Admin: 07/25/19 09:12 Dose: 81 mg Budesonide/Formoterol Fumarate (Symbicort 80/4.5mcg -) 2 puff IH BID [facility] Last Admin: 07/25/19 09:13 Dose: 2 puff Famotidine (Acid Substation Operator Conversion) 10 mg PO BID [facility] Last Admin: 07/25/19 09:12 Dose: 10 mg Heparin Sodium (Porcine) (Heparin -) 5,000 unit SQ TID [facility] Last Admin: 07/25/19 06:37 Dose: 5,000 unit Azithromycin (Zithromax 500mg Ivpb (Pre-Docked)) 500 mg in 250 mls @ 250 mls/ hr IVPB Q24H [facility] Last Admin: 07/24/19 22:41 Dose: 250 mls/hr Ceftriaxone Sodium 2 gm/ (Dextrose) 100 mls @ 200 mls/hr IVPB DAILY [facility]; Protocol Last Admin: 07/25/19 09:12 Dose: 200 mls/hr Lisinopril (Prinivil) 10 mg PO DAILY [facility] Last Admin: 07/25/19 09:12 Dose: 10 mg Metoclopramide HCl (Reglan -) 10 mg PO TIDAC [facility] Last Admin: 07/25/19 06:37 Dose: 10 mg Tamsulosin HCl (Flomax -) 0.4 mg PO 0830 [facility] Last Admin: 07/25/19 09:12 Dose: 0.4 mg - Objective Vital Signs: Vital Signs Temperature 98.7 F 07/25/19 08:39 Pulse Rate 64 07/25/19 08:39 Respiratory Rate 18 07/25/19 09:00 Blood Pressure 141/66 07/25/19 08:39 O2 Sat by Pulse Oximetry (%) 93 L 07/25/19 09:00 Constitutional: Yes: Well Nourished, Calm Eyes: Yes: WNL HENT: Yes: WNL Neck: Yes: WNL Cardiovascular: Yes: Regular Rate and Rhythm, S1, S2 Respiratory: Yes: Rales (bilateral crackles 1/3 up) Gastrointestinal: Yes: Normal Bowel Sounds, Soft Extremities: Yes: WNL Edema: No Labs: CBC, BMP 07/25/19 06:33 07/25/19 06:33 INR, PTT INR 1.17 (0.83-1.09) H 07/20/19 19:00 - ....Imaging Cat Scan: Report Reviewed, Image Reviewed (NO CHANGE,MODERATE- SEVERE ILD) Assessment/Plan IMP ILD SEPSIS PNEUMONIA RENAL COLIC HEMATURIA HTN HLD HYDRONEPHROSIS PLAN ABX PER ID O2 NEEDED INHALED BRONCHODILATORS PFTS WITH DLCO OUTPATIENT AMBULATORY O2 SAT ON RA Problem List - Problems (1) Sepsis Code(s): A41.9 - SEPSIS, UNSPECIFIED ORGANISM (2) Hematuria Code(s): R31.9 - HEMATURIA, UNSPECIFIED (3) Renal colic Code(s): N23 - UNSPECIFIED RENAL COLIC (4) ILD (interstitial lung disease) Code(s): J84.9 - INTERSTITIAL PULMONARY DISEASE, UNSPECIFIED (5) Pneumonia Code(s): J18.9 - PNEUMONIA, UNSPECIFIED ORGANISM IMP
[2019-07-25 15:17] VITALS: BP 124/84; PULSE 66
--- NOTE | 2019-07-25 15:26 | DS ---
Physical Examination Vital Signs: Vital Signs Temperature 98.7 F 07/25/19 08:39 Pulse Rate 71 07/25/19 11:40 Respiratory Rate 18 07/25/19 09:00 Blood Pressure 141/66 07/25/19 08:39 O2 Sat by Pulse Oximetry (%) 93 L 07/25/19 11:40 Constitutional: Yes: No Distress Eyes: Yes: WNL HENT: Yes: WNL Neck: Yes: WNL Cardiovascular: Yes: WNL Respiratory: Yes: SOB on Exertion Gastrointestinal: Yes: WNL ...Rectal Exam: Yes: Deferred Renal/: Yes: WNL Breast(s): Yes: WNL Musculoskeletal: Yes: WNL Extremities: Yes: WNL Edema: No Peripheral Pulses WNL: Yes Integumentary: Yes: WNL Wound/Incision: Yes: Clean/Dry Neurological: Yes: WNL ...Motor Strength: WNL Psychiatric: Yes: WNL Labs: CBC, BMP 07/25/19 06:33 07/25/19 06:33 Discharge Summary Reason For Visit: FLANK PAIN,PNEUMONIA Current Active Problems Cardiac murmur (Acute) ILD (interstitial lung disease) (Acute) Pneumonia (Acute) Sepsis (Acute) UTI (urinary tract infection) (Acute) Condition: Improved - Instructions Diet, Activity, Other Instructions: appt w me tuesday appt w dr cr f/u w gu 3 days cont all tx at home as is inhalers new steroids lasix 20 3 timems a wk all new Referrals: Gerard Cr MD [Staff Physician] - 2 Weeks (pulmonary function tests) Jignesh Lee MD [Primary Care Provider] - Disposition: HOME - Home Medications Comprehensive Discharge Medication List: Ambulatory Orders Lisinopril [Zestril] 40 mg PO DAILY 05/08/14 Omeprazole [Prilosec (RX)] 40 mg PO DAILY 05/08/14 Aspirin [ASA -] 1 tab PO DAILY 07/09/19 Tamsulosin HCl [Flomax -] 1 cap PO DAILY 07/09/19 Fenofibrate 160 mg PO DAILY 07/20/19 Nitrofurantoin Monohyd/M-Cryst [Macrobid -] 100 mg PO BID 07/20/19 Oxycodone HCl/Acetaminophen [Percocet 5-325 mg Tablet] 1 tab PO Q6H PRN
== END 2019-07-25 15:41 | disposition home or self-care (01) | DRG 871 ==
LOC: JER 12:24 → JERBED 16:47 → J7W 18:07 → J4W 07-21 12:51
PROVIDERS: ADMIT Internal Medicine; ATTEND Family Medicine
DX: A41.89 Other specified sepsis (principal); J18.9 Pneumonia, unspecified organism; J84.9 Interstitial pulmonary disease, unspecified; E87.2 Acidosis; N39.0 Urinary tract infection, site not specified; N17.9 Acute kidney failure, unspecified; K52.1 Toxic gastroenteritis and colitis; I10 Essential (primary) hypertension; N40.0 Benign prostatic hyperplasia without lower urinary tract symptoms; E78.5 Hyperlipidemia, unspecified; D75.89 Other specified diseases of blood and blood-forming organs; R65.20 Severe sepsis without septic shock; N13.9 Obstructive and reflux uropathy, unspecified; D69.6 Thrombocytopenia, unspecified; J44.9 Chronic obstructive pulmonary disease, unspecified; K21.9 Gastro-esophageal reflux disease without esophagitis; R31.9 Hematuria, unspecified; R01.1 Cardiac murmur, unspecified; R00.0 Tachycardia, unspecified; D72.829 Elevated white blood cell count, unspecified; T36.8X5A Adverse effect of other systemic antibiotics, initial encounter; I35.0 Nonrheumatic aortic (valve) stenosis
CPT/HCPCS: 36415; 71045-TC-FY; 71250-TC; 74176-TC; 80048; 80053; 81003; 82436; 82565; 82728; 82803; 83540; 83550; 83605; 83735; 83880; 84100; 84133; 84300; 84484; 85025; 85610; 85730; 87040; 87045; 87046; 87070; 87077; 87086; 87205; 87324; 87389; 87449; 87804; 87899; 93005; 93010; 93306-TC; 94010; 94640; 94761; 99281-25; J0131; J1644; J7030

== ENCOUNTER 2021-01-26 04:43 | Day surgery (SDC) | payer OTHER ==
[2021-01-22 12:05] VITALS: BMI 27.4
[2021-01-26 17:45] VITALS: TEMP 98.2
[2021-01-26 19:57] VITALS: BP 136/69; PULSE 42
== END 2021-01-26 19:55 | disposition home or self-care (01) ==
LOC: JRADIR 04:43
PROVIDERS: ATTEND Family Medicine
PROC: 0BBG3ZX Excision of Left Upper Lung Lobe, Percutaneous Approach, Diagnostic (ICD-10-PCS; principal; 2021-01-26)
DX: D38.1 Neoplasm of uncertain behavior of trachea, bronchus and lung (principal)
CPT/HCPCS: 32408; 71046-TC-FY; 76098-TC-FY; 77012-TC; 87899; 88305-TC

== ENCOUNTER 2021-06-25 06:11 | Emergency (ER) | payer OTHER ==
[2021-06-25 06:35] VITALS: BP 155/76; PULSE 54; TEMP 97.8; BMI 27.4
== END 2021-06-25 08:10 | disposition home or self-care (01) ==
LOC: JER 06:11
DX: T16.2XXA Foreign body in left ear, initial encounter (principal)
CPT/HCPCS: 99282-25

== ENCOUNTER 2022-03-25 04:04 | Day surgery (SDC) | payer OTHER ==
[2022-03-17 18:39] VITALS: BMI 24.3
[2022-03-25] MEDS ORDERED: LIDOCAINE HCL 1%, 10 MG/ML (20ML VIAL) ONE (10:02)
[2022-03-25] MEDS ORDERED: PROPOFOL 20 ML ONE ×2 (10:03)
[2022-03-25] MEDS ORDERED: LIDOCAINE HCL/PF 2% SDV 5ML VIAL ONE (10:03)
[2022-03-25] MEDS ORDERED: BUPIVACAINE HCL/PF 0.25% (2.5MG/ML) 10 ML VIAL ONE (10:03)
[2022-03-25] MEDS ORDERED: MIDAZOLAM HCL 2 MG/2 ML SINGLE DOSE VIAL ONE (10:03)
[2022-03-25] MEDS ORDERED: DEXAMETHASONE SOD PHOSPHATE 4 MG/1 ML VIAL ONE (10:03)
[2022-03-25] MEDS ORDERED: ETOMIDATE 20 MG/10 ML AMPUL IVPUSH ONE (10:22)
[2022-03-25] MEDS ORDERED: ceFAZolin SODIUM 1 GM VIAL IVPB ONE (10:25)
[2022-03-25] MEDS ORDERED: ceFAZolin SODIUM 1 GM VIAL ONE (10:28)
[2022-03-25] MEDS ORDERED: GLYCOPYRROLATE 0.2 MG/1 ML VIAL ONE (10:29)
[2022-03-25] MEDS ORDERED: LIDOCAINE HCL 1%, 10 MG/ML (20ML VIAL) NR ONE ×2 (10:42)
[2022-03-25] MEDS ORDERED: BUPIVACAINE HCL/PF 0.25% (2.5MG/ML) 10 ML VIAL IJ ONE ×2 (10:43)
[2022-03-25] MEDS ORDERED: ONDANSETRON 4 MG/2 ML VIAL IVPUSH PRN (11:55)
[2022-03-25] MEDS ORDERED: oxyCODONE HCL 5 MG TABLET PO PRN (11:55)
[2022-03-25] MEDS ORDERED: LACTATED RINGERS SOLUTION 1,000 ML IV SCH (12:00)
[2022-03-25 14:08] VITALS: BP 130/60; PULSE 55; TEMP 97.9
== END 2022-03-25 13:40 | disposition home or self-care (01) ==
LOC: JASU-SURG 04:04
PROVIDERS: ATTEND Surgery
PROC: 0JB70ZZ Excision of Back Subcutaneous Tissue and Fascia, Open Approach (ICD-10-PCS; 2022-03-25)
PROC: 0JBL0ZZ Excision of Right Upper Leg Subcutaneous Tissue and Fascia, Open Approach (ICD-10-PCS; principal; 2022-03-25 10:30)
DX: D17.23 Benign lipomatous neoplasm of skin and subcutaneous tissue of right leg (principal); D17.1 Benign lipomatous neoplasm of skin and subcutaneous tissue of trunk
CPT/HCPCS: 88304-TC; 94760

== ENCOUNTER 2022-05-11 10:56 | Emergency (ER) | payer OTHER ==
[2022-05-11 11:00] VITALS: BP 157/80; PULSE 56; RESP 18; TEMP 97; BMI 24.2
[2022-05-11] MEDS ORDERED: IBUPROFEN 600 MG TABLET (FP) PO ONE ×2 (11:43→11:44)
== END 2022-05-11 13:23 | disposition home or self-care (01) ==
LOC: JERFT 10:56
DX: M79.674 Pain in right toe(s) (principal)
CPT/HCPCS: 73630-TC-RT-FY; 99283-25

== ENCOUNTER 2023-03-14 04:27 | Day surgery (SDC) | payer OTHER ==
[2023-03-10 12:04] VITALS: BMI 24.7
[2023-03-14] MEDS ORDERED: PROPOFOL 20 ML ONE ×2 (14:28→15:35)
[2023-03-14] MEDS ORDERED: MIDAZOLAM HCL 2 MG/2 ML SINGLE DOSE VIAL ONE (14:28)
[2023-03-14] MEDS ORDERED: ceFAZolin SODIUM 1 GM VIAL IVPB ONE (15:25)
[2023-03-14] MEDS ORDERED: BUPIVACAINE HCL/PF 0.5% (5MG/ML) 10 ML VIAL ONE (15:45)
[2023-03-14] MEDS ORDERED: BUPIVACAINE HCL/PF 0.5% (5 MG/ML) 30 ML VIAL IJ ONE (15:51)
[2023-03-14 17:31] VITALS: TEMP 97.8
[2023-03-14 19:17] VITALS: BP 158/68; PULSE 54; RESP 20
== END 2023-03-14 18:20 | disposition home or self-care (01) ==
LOC: JASU-SURG 04:27
PROVIDERS: ATTEND Urology
PROC: 0VB60ZZ Excision of Right Tunica Vaginalis, Open Approach (ICD-10-PCS; principal; 2023-03-14 14:30)
DX: N43.3 Hydrocele, unspecified (principal)
CPT/HCPCS: 88302-TC; 94760

== ENCOUNTER 2023-03-26 20:14 | Emergency (ER) | payer OTHER ==
[2023-03-26 20:20] VITALS: BP 166/97; PULSE 76; RESP 20; TEMP 98.5; BMI 24.7
[2023-03-26 22:06] LABS: BASO % 1.2 % (0-2.0); EOS % 1.8 % (0-4.5); HEMATOCRIT 38.3 % (35.4-49); HEMOGLOBIN 12.9 GM/dL (11.7-16.9); LYMPH % 17.2 % (8-40); MCH 33.4 pg (25.7-33.7); MCHC 33.7 g/dl (32.0-35.9); MEAN CELL VOLUME 99.2 fl (80-96); MEAN PLT VOLUME 9.5 fl (7.5-11.1); MONO % 8.2 % (3.8-10.2); NEUT % 71.6 % (42.8-82.8); PLATELET COUNT 143 10^3/uL (134-434); RBC 3.86 M/mm3 (4.00-5.60); RDW 12.7 % (11.9-15.9); WHITE BLOOD COUNT 8.3 K/mm3 (4.0-10.0)
[2023-03-26 22:16] LABS: POTASSIUM 3.9 mmol/L (3.5-5.1)
[2023-03-26 22:17] LABS: CALCIUM 8.7 mg/dL (8.5-10.1)
[2023-03-26 22:18] LABS: ALBUMIN 3.8 g/dl (3.4-5.0); BLOOD UREA NITROGEN 30.1 mg/dL (7-18)
[2023-03-26 22:23] LABS: BILIRUBIN,TOTAL 0.1 mg/dL (0.2-1); TOT PROT 7.5 g/dl (6.4-8.2)
[2023-03-26] MEDS ORDERED: SODIUM CHLORIDE 0.9% 500 ML INFUS.BAG IV ONE (22:27)
[2023-03-26] MEDS ORDERED: CEFTRIAXONE 1,000 MG in DEXTROSE 5%-WATER - 50 ML IVPB ONE (23:30)
[2023-03-26] MEDS ORDERED: CEFTRIAXONE 1 GM/50 ML BAG ONE (23:33)
[2023-03-26 23:47] LABS: URINE APPEARANCE CLEAR; URINE BILIRUBIN NEGATIVE (NEGATIVE); URINE COLOR YELLOW; URINE GLUCOSE (UA) NEGATIVE (NEGATIVE); URINE KETONE NEGATIVE (NEGATIVE); URINE LEUK ESTERASE NEGATIVE (NEGATIVE); URINE NITRITE NEGATIVE (NEGATIVE); URINE PROTEIN NEGATIVE (NEGATIVE); URINE UROBILINOGEN 0.2 mg/dL (0.2-1.0)
== END 2023-03-27 00:34 | disposition home or self-care (01) ==
LOC: JER 20:14
DX: N99.89 Other postprocedural complications and disorders of genitourinary system (principal); N50.89 Other specified disorders of the male genital organs
CPT/HCPCS: 36415; 76870-TC; 80053; 81003; 85025; 87086; 99284-25